=== PATIENT | male | born 1945 | race Caucasian/White ===

== ENCOUNTER → 2018-05-15 10:24 | Outpatient (CLI) | payer MEDICARE, OTHER, SELFPAY ==
[2018-05-15 12:44] LABS: BUN Creatinine Ratio 22.9 (6-22); Blood Urea Nitrogen 16 mg/dL (9-20); Estimated Glomerular Filt Rate > 60.0 mL/min (>60)
== END ==
PROVIDERS: PCP Family Medicine; Visit Provider Podiatrist
DX: M77.8 Other enthesopathies, not elsewhere classified (principal)
CPT/HCPCS: 36415; 82565; 84520

== ENCOUNTER → 2018-05-28 14:51 | Outpatient (CLI) | payer MEDICARE, OTHER, SELFPAY ==
--- NOTE | 2018-05-28 | DI.MRI.S_ITS ---
PROCEDURE: MR FOOT RT WO/W CON INDICATIONS: Pain over the first MTP joint, plantar margin, in a patient with scuffing injury of the soft tissues against this tear read with the ball of the foot medially. TECHNIQUE: Noncontrast coronal T1 spin echo and STIR, sagittal T1 spin echo with fat saturation and STIR, axial T1 spin echo and T2 fast spin echo with fat saturation. After the administration of contrast, axial/sagittal/coronal T1 spin echo with fat saturation through the right foot. COMPARISON: None. FINDINGS: Image quality: Excellent. Bones: The visualized bone marrow demonstrates normal signal on all sequences. The overlying cortex appears intact. No abnormal intraosseous enhancement. The first metatarsal head sesamoid bones appear normal. Soft tissues: No soft tissue masses suggestive of neoplasm are visualized. A ganglion cyst is not found (synovial protrusion). Within the soft tissues plantar to the first metatarsal head and associated sesamoid bones there is a curvilinear inflammatory process that measures up to 4 cm in longitudinal dimension, and up to 7 mm in thickness. This has a transverse dimension of approximately 2.7 cm, and shows relatively prominent contrast enhancement that implies hyperemia/inflammation. Centrally positioned within this area is a thin fluid collection, measuring only approximately 2 mm in thickness of the 7 mm total, with a similar reduction in size in both longitudinal and transverse dimensions. The fluid is simple in internal character, and the hyperemic inflammatory component involves the adjacent parameter material and is homogeneously enhancing. The adjacent scanned muscles demonstrate normal overall bulk and internal signal. Subcutaneous tissues otherwise appear normal as well, elsewhere. No additional abnormal soft tissue enhancement. IMPRESSION: Posttraumatic adventitial sesamoid bursitis appears present in this clinical setting, with a predominantly soft tissue inflammatory component with a thin central fluid component as discussed above, having a maximal combined thickness of 7 mm, and 8 maximal curvilinear longitudinal and transverse dimension of approximately 4 cm and 2.7 cm, respectively. There is no evidence of sesamoid bone fracture or inflammation. The remainder of the forefoot and midfoot visualized appears normal. Dictated by: Chino Quezada M.D. on 05/29/2018 at 10:33 Approved by: Chino Quezada M.D. on 05/29/2018 at 11:01
== END ==
PROVIDERS: Family Provider Family Medicine; PCP Family Medicine; Visit Provider Podiatrist
DX: M79.671 Pain in right foot (principal); M71.571 Other bursitis, not elsewhere classified, right ankle and foot
CPT/HCPCS: 73720

== ENCOUNTER 2019-03-11 10:32 | Observation (INO) | payer MEDICARE, OTHER, SELFPAY ==
[2019-03-11] VITALS (16 sets, daily range): BP systolic 107–166; BP diastolic 43–81; PULSE 89–115; RESP 16–28; TEMP 36.1–37.9; O2SAT 84–97; BMI 25.0; BMI 24.2
--- NOTE | 2019-03-11 | DI.ECHO.S_ITS ---
[facility] +---------+ : : [address] [place] : : : : [id number] : : : : Phone: [phone]+ Echocardiogram Report + + :Name: CESAR GARCÍA Study Date: 03/12/2019 Height: 72 in : :[facility] Weight: 178 lb : : Gender: Male BSA: 2.0 m2 : :: 1945 Age: 73 yrs BP: 130/71 mmHg: :Reason For Study: COPD : : Performed By: Gaviota Frazier : :Referring: JESSE MICHELLE : + + Interpretation Summary This was a technically difficult study. Patient had frequent ectopies during the study. -Overall the left ventricular and right ventricular systolic function appears are normal and there is no significant valvular pathologies. The PA systolic pressure is about 33 mmHg based on CPAP of 3 mmHg. -No prior echo for comparison. Procedure: A two-dimensional transthoracic echocardiogram with color flow and Doppler was performed. The study quality was technically adequate. Most of the acoustic windows were suboptimal, but the best imaging was obtained from the subcostal window. The heart rate ranged between 85-98 bpm during the study. Frequent ectopies. Left Ventricle: The left ventricle is normal in size, wall thickness, and systolic function without any focal wall motion abnormalities. The ejection fraction is estimated to be 60-65%. Diastolic function could not be accurately assessed due to tachycardia. Right Ventricle: The right ventricle grossly appears normal in size with probable normal systolic function. Atria: The left atrium is mildly dilated. Right atrial size is normal. There is no Doppler evidence for an interatrial shunt. Mitral Valve: The mitral valve is grossly normal. There is trace mitral regurgitation. Aortic Valve: The aortic valve opens well. There is mild aortic valve sclerosis. The aortic valve is not well visualized. There is no hemodynamically significant valvular aortic stenosis. No aortic regurgitation is present. Tricuspid Valve: The tricuspid valve is not well visualized, but is grossly normal. There is trace tricuspid regurgitation. The right ventricular systolic pressure is estimated to be at least 33 mmHg based on an estimated right atrial pressure of 3 mm Hg. Pulmonic Valve: The pulmonic valve is normal in structure and function. There is no pulmonic valvular regurgitation. Great Vessels: The aortic root is mildly dilated. The ascending aorta is at the upper limits of normal in size. The aortic arch is at the upper limits of normal in size. Inspiratory collapse cannot be assessed because of mechanical ventilation, thus CVP cannot be estimated.. Pericardium/ Pleura There is no pericardial effusion. There is no pleural effusion. MMode/2D Measurements & Calculations LVIDd: 4.7 cm Ao root diam: 3.9 cm LVIDs: 3.5 cm Aortic Jxn: 3.1 cm FS: 26.1 % asc Aorta Diam: 3.5 cm IVSd: 1.1 cm Ao Arch Diam (Prox Trans): 3.1 cm LVPWd: 0.91 cm LV cruz. diameter/BSA (cm/m^2): 2.3 LV sys. diameter/BSA (cm/m^2): 1.7 LA dimension: 3.9 cm RA long axis: 4.1 cm LA A2 area: 23.1 cm2 RA area: 14.3 cm2 LA A4 area: 19.2 cm2 RA vol: 42.0 ml LA length (vol): 4.9 cm RA : 20.7 ml/m2 LA vol: 76.4 ml IVC diam: 1.6 cm LA vol index: 37.7 ml/m2 RVDd major: 6.1 cm RVD1 (basal): 3.5 cm RVD2 (mid): 2.9 cm Doppler Measurements & Calculations Ao V2 max: 132.6 cm/sec MV E max soraya: 58.0 cm/sec Ao V2 mean: 87.2 cm/sec MV A max soraya: 83.3 cm/sec Ao max P.0 mmHg MV E/A: 0.70 Ao mean P.6 mmHg MV dec time: 0.24 sec Ao V2 VTI: 24.2 cm MV P1/2t: 74.5 msec TR max soraya: 271.3 cm/sec MV P1/2t max soraya: 57.7 cm/sec TR max P.5 mmHg MVA(P1/2t): 3.0 cm2 PA V2 max: 90.8 cm/sec PA V2 mean: 63.1 cm/sec PA mean P.8 mmHg PA Accel Time: 0.13 sec Electronically signed by: Farrukh Shields M.D. on Reading Physician:03/12/2019 04:36 PM
--- NOTE | 2019-03-11 | DI.RAD.S_ITS ---
PROCEDURE: XR CHEST 2V INDICATIONS: pulmonary edema TECHNIQUE: 2 views of the chest were acquired. COMPARISON: [facility], CT, CT ANGIO CHEST PE PROTOCOL, 03/11/2019, 12:59. [facility], CR, XR CHEST 1V, 03/11/2019, 11:08. [facility], CR, CHEST 2 VIEW, 08/06/2016, 10:52. FINDINGS: Surgical changes and devices: None. Lungs and pleura: Lungs are clear. No pleural effusions or pneumothorax. Mediastinum: Mediastinal contours are normal. Heart size is normal. Bones and chest wall: No suspicious bony abnormalities. Soft tissues appear unremarkable. IMPRESSION: Mild chronic interstitial prominence, no source of pulmonary edema is seen. Heart size remains within normal limits. Dictated by: Chino Quezada M.D. on 03/11/2019 at 16:49 Approved by: Chino Quezada M.D. on 03/11/2019 at 16:51
[2019-03-11] MEDS: ALBUTEROL/IPRATROPIUM 3 ML AMPUL INH (10:51)
--- NOTE | 2019-03-11 11:01 | DI.RAD.S_ITS ---
PROCEDURE: XR CHEST 1V INDICATIONS: short of breath TECHNIQUE: One view of the chest was acquired. COMPARISON: [facility], CHEST 2 VIEW, 08/06/2016, 10:52. [facility], CHEST 2 VIEW, 03/02/2013, 16:04. FINDINGS: Surgical changes and devices: None. Lungs and pleura: Lungs are abnormal with an alveolar and interstitial prominence through the middle and lower thirds of the lung parenchyma with relatively large lung volumes on prior lateral view chest imaging in a pattern that may reflect pulmonary edema superimposed on emphysema (causing the lucency over the upper lungs preferentially).. No pleural effusions or pneumothorax. Mediastinum: Mediastinal contours appear normal. Heart size is normal. Bones and chest wall: No suspicious bony lesions. Overlying soft tissues appear unremarkable. IMPRESSION: Previously present interstitial prominence but now with a pulmonary edema pattern superimposed. Suspect COPD and emphysematous loom changer the upper lungs bilaterally as discussed above. Dictated by: Chino Quezada M.D. on 03/11/2019 at 11:56 Approved by: Chino Quezada M.D. on 03/11/2019 at 11:58
--- NOTE | 2019-03-11 11:03 | ED.SOB ---
HPI - SOB/Dyspnea General Chief Complaint: Shortness of Breath/Dyspnea Stated Complaint: Irregular Heart Rate/SOB Time Seen by Provider: 03/11/19 10:51 Source: patient Mode of arrival: ambulatory Limitations: no limitations History of Present Illness Patient is a 73-year-old male who presents with increasing shortness of breath. her states he feels short of breath all the time is a history of COPD been worse over the last 6 days. He has of cough no fever no chills no body aches. He says that he coughs when he laid down to go to sleep. He can't get comfortable. But denies orthopnea. He has no swelling in his legs. No chest pain or heart palpitation of PVCs are noted on monitor and EKG. Was seen by PCP yesterday who thought it was viral. He states that he got back 02/28/2019 after visiting [place] and [place] flying by airplane. 5 days later he began getting short of breath, which has progressively worsened MD Complaint: shortness of breath and cough Severity: moderate Consistency/Duration: constant Relieving factors: nothing Exacerbating factors: nothing Known history of: COPD Associated symptoms: cough Related Data Home oxygen amount: none Home Medications Medication Instructions Recorded Confirmed PreserVision AREDS 1 tab PO QPM #0 03/30/13 03/11/19 aspirin 81 mg PO QPM #0 05/25/13 03/11/19 lisinopril 10 mg PO QPM 03/11/19 03/11/19 nifedipine [Procardia XL] 30 mg PO QPM 03/11/19 03/11/19 pantoprazole [Protonix] 40 mg PO QPM 03/11/19 03/11/19 Previous Rx's Medication Instructions Recorded albuterol sulfate HFA 90 1 puff INHALATION Q6H PRN #18 gram 03/10/19 mcg/actuation aerosol inhaler guaifenesin ER 1,200 mg tablet, 1,200 mg PO Q12H #20 tab 03/10/19 extended release 12 hr Allergies Allergy/AdvReac Type Severity Reaction Status Date / Time No Known Drug Allergies Allergy Verified 03/10/19 10:41 Review of Systems Review of Systems ROS Unobtainable: All systems reviewed & are unremarkable except as noted in HPI and below Constitutional Denies chills, Denies fever(s), Denies lethargy and Denies weakness Eyes Denies change in vision, Denies eye discharge, Denies irritation and Denies loss of vision Cardiovascular Denies chest pain, Denies irregular heart rhythm, Denies lightheadedness, Denies palpitations, Reports dyspnea, Reports dyspnea on exertion and Denies orthopnea Respiratory Reports cough, Reports dyspnea and Reports dyspnea on exertion Gastrointestinal Gastrointestinal: Denies abdominal pain, Denies change in bowel habits, Denies diarrhea, Denies nausea and Denies vomiting Genitourinary Denies hematuria, Denies flank pain, Denies urinary incontinence and Denies urinary urgency Musculoskeletal Denies back pain, Denies muscle weakness, Denies numbness and Denies tingling Integumentary/Breasts Denies pruritus, Denies erythema, Denies rash and Denies wounds Neurologic Denies loss of vision, Denies numbness, Denies tingling and Denies weakness Endocrine Denies palpitations FOR[facility] Medical History COPD (chronic obstructive pulmonary disease) (Chronic) Cataract (Chronic) Hearing loss (Chronic) Hemorrhoid (Chronic) Shoulder pain (Chronic ~1978) Chicken pox (Resolved ~1950) Measles (Resolved ~1949) Surgical History Anesthesia (Resolved) History of cataract removal with insertion of prosthetic lens History of tonsillectomy Family History Father Heart disease Hypertension Stroke Social History marital status: Smoking Status: Former smoker alcohol intake: never substance use type: does not use Family History Father Heart disease Hypertension Stroke Social History marital status: Smoking Status: Former smoker alcohol intake: never substance use type: does not use Exam Initial Vital Signs Initial Vital Signs: Vital Signs Temperature 99.0 F 03/11/19 10:41 Pulse Rate 115 H 03/11/19 10:41 Respiratory Rate 21 03/11/19 10:41 Blood Pressure 166/70 H 03/11/19 10:41 Pulse Oximetry 94 03/11/19 10:41 GENERAL: Alert elderly male no acute distress and in [no acute] distress. HEENT: Head atraumatic,EOMI, pupils reactive, face symmetric, neck is supple no JVD CARDIOVASCULAR: Regular rate and rhythm without murmurs, rubs or gallops. RESPIRATORY: Speaks in full sentences decreased breath sounds bilaterally slightly tachypneic ABDOMEN: Soft, nontender. Normoactive bowel sounds all 4 quadrants. No guarding or rebound. no wheezing rales or rhonchi EXTREMITIES: Normal range of motion, no clubbing or edema. Neurovascularly intact NEUROLOGICAL: Alert and oriented x4.Normal gait and speech. Cranial nerves II through XII grossly intact. SKIN: Warm, dry, no laceration, no petechiae, no rashes or lesions. Course Orders Ordered: ED Orders 03/11/19 11:01 Consult to Respiratory Therapy Evaluate & Treat XR chest 1V Stat EKG-12 Lead Stat 03/11/19 11:16 B Type Natriuretic Peptide Stat Complete Blood Count AUTO DIFF Stat Comprehensive Metabolic Panel Stat Magnesium Stat Partial Thromboplastin Time Stat Procalcitonin Stat Prothrombin Time INR Stat Troponin & CK Cardiac Panel Stat 03/11/19 12:56 CT angio chest PE protocol Stat 03/11/19 14:28 Respiratory Panel (Film Array) Stat Discontinued Medications Albuterol (Ventolin) 2.5 mg INH NOW ONE Stop: 03/11/19 11:01 Last Admin: 03/11/19 11:36 Dose: 2.5 mg Albuterol/Ipratropium (Duoneb) 3 ml INH NOW ONE Stop: 03/11/19 10:51 Last Admin: 03/11/19 10:51 Dose: 3 ml Albuterol/Ipratropium (Duoneb) 3 ml INH NOW ONE Stop: 03/11/19 11:01 Last Admin: 03/11/19 11:36 Dose: Not Given Furosemide (Lasix) 40 mg IV NOW ONE Stop: 03/11/19 13:30 Last Admin: 03/11/19 13:40 Dose: 40 mg Levofloxacin (Levaquin) 750 mg in 150 mls @ 100 mls/hr IV NOW ONE Stop: 03/11/19 14:58 Last Infusion: 03/11/19 14:42 Dose: 100 mls/hr Admin: 03/11/19 13:40 Dose: 100 mls/hr Methylprednisolone (Solu-Medrol 125 Mg Vial) 125 mg IV NOW ONE Stop: 03/11/19 11:01 Last Admin: 03/11/19 11:22 Dose: 125 mg Methylprednisolone (Solu-Medrol 125 Mg Vial) 125 mg IV NOW ONE Stop: 03/11/19 11:47 Last Admin: 03/11/19 11:51 Dose: Not Given Reevaluation(s) Reevaluation #1: The patient states that duo nebs have not helped him. He is actually tachycardic at 10:09 a.m. and satting anywhere from 90-91%. His states that he still feels short of breath and not better. Time: 12:57 Vital Signs - 8 hr 03/11/19 10:41 03/11/19 10:52 03/11/19 11:53 Temperature 99.0 F Pulse Rate 115 H 102 H 103 H Respiratory Rate 21 Blood Pressure 166/70 H Blood Pressure [Left Arm] Pulse Oximetry 94 97 03/11/19 12:00 03/11/19 12:30 03/11/19 13:11 Temperature Pulse Rate 102 H 101 H 108 H Respiratory Rate 22 22 16 Blood Pressure Blood Pressure [Left Arm] 122/56 L 134/51 L 136/43 L Pulse Oximetry 94 90 L 93 03/11/19 13:45 03/11/19 13:55 03/11/19 14:42 Temperature Pulse Rate 98 H 115 H 102 H Respiratory Rate 16 28 H 20 Blood Pressure 128/62 Blood Pressure [Left Arm] 107/61 Pulse Oximetry 96 84 L 95 03/11/19 14:54 Temperature 100.3 F H Pulse Rate 105 H Respiratory Rate 18 Blood Pressure 150/76 H Blood Pressure [Left Arm] Pulse Oximetry 93 MDM - SOB/Dyspnea Lab Data Attestation: I reviewed the patient's lab results. Result diagrams: 03/11/19 11:16 03/11/19 11:16 Lab Results 03/11/19 03/11/19 03/11/19 Range/Units 11:16 11:16 11:16 WBC 17.0 H (4.5-11.0) X10^3/uL RBC 4.58 (4.5-5.9) X10^6/uL Hgb 13.9 (13.5-17.5) g/dL Hct 41.1 (41-53) % MCV 89.8 (80-100) fL MCH 30.4 (26-34) PG MCHC 33.9 (30-36) % RDW 12.8 (11.6-14.8) % Plt Count 320 (150-400) X10^3/uL Neut % (Auto) 58.9 (50-75) % Lymph % (Auto) 21.2 L (25-40) % [facility] % (Auto) 18.4 H (3-14) % Eos % (Auto) 1.1 L (2-4) % Baso % (Auto) 0.4 (0-2) % Neut # (Auto) 70602 H (1206-8189) /uL Lymph # (Auto) 3600 (9071-7052) /uL [facility] # (Auto) 3100 H (0-900) /uL Eos # (Auto) 200 (0-450) /uL Baso # (Auto) 100 (0-100) /uL PT 15.5 H (10.1-12.7) SECONDS INR 1.3 (0.9-1.3) APTT 29 (26.4-36.2) SECONDS Sodium 139 (137-145) mmol/L Potassium 3.8 (3.4-5.1) mmol/L Chloride 103 (98-107) mmol/L Carbon Dioxide 24 (22-32) mmol/L BUN 21 H (9-20) mg/dL Creatinine 0.80 (0.66-1.25) mg/dL Estimated GFR > 60.0 (>60) mL/min BUN/Creatinine Ratio 26.3 H (6-22) Glucose 113 H (80-110) mg/dL Calcium 8.6 (8.4-10.2) mg/dL Magnesium 2.0 (1.6-2.3) mg/dL Total Bilirubin 1.2 (0.2-1.3) mg/dL AST 34 (17-59) IU/L ALT 38 (21-72) IU/L Alkaline Phosphatase 108 (38-126) U/L Total Creatine Kinase 332 H (55-170) U/L CK-MB (CK-2) 4.10 H (<2.37) ng/mL CK-MB (CK-2) Rel Index 1.2 L (1.5-5.0) % Troponin I < 0.012 (0.01-0.034) ng/mL B-Natriuretic Peptide 107 H (<100) Total Protein 7.0 (6.3-8.2) g/dL Albumin 3.9 (3.5-5.0) g/dL Globulin 3.1 (1.7-4.1) g/dL Albumin/Globulin Ratio 1.3 (1.0-2.8) Procalcitonin (<0.5) ng/mL 03/11/19 Range/Units 11:16 WBC (4.5-11.0) X10^3/uL RBC (4.5-5.9) X10^6/uL Hgb (13.5-17.5) g/dL Hct (41-53) % MCV (80-100) fL MCH (26-34) PG MCHC (30-36) % RDW (11.6-14.8) % Plt Count (150-400) X10^3/uL Neut % (Auto) (50-75) % Lymph % (Auto) (25-40) % [facility] % (Auto) (3-14) % Eos % (Auto) (2-4) % Baso % (Auto) (0-2) % Neut # (Auto) (3053-0223) /uL Lymph # (Auto) (5051-9285) /uL [facility] # (Auto) (0-900) /uL Eos # (Auto) (0-450) /uL Baso # (Auto) (0-100) /uL PT (10.1-12.7) SECONDS INR (0.9-1.3) APTT (26.4-36.2) SECONDS Sodium (137-145) mmol/L Potassium (3.4-5.1) mmol/L Chloride (98-107) mmol/L Carbon Dioxide (22-32) mmol/L BUN (9-20) mg/dL Creatinine (0.66-1.25) mg/dL Estimated GFR (>60) mL/min BUN/Creatinine Ratio (6-22) Glucose (80-110) mg/dL Calcium (8.4-10.2) mg/dL Magnesium (1.6-2.3) mg/dL Total Bilirubin (0.2-1.3) mg/dL AST (17-59) IU/L ALT (21-72) IU/L Alkaline Phosphatase (38-126) U/L Total Creatine Kinase (55-170) U/L CK-MB (CK-2) (<2.37) ng/mL CK-MB (CK-2) Rel Index (1.5-5.0) % Troponin I (0.01-0.034) ng/mL B-Natriuretic Peptide (<100) Total Protein (6.3-8.2) g/dL Albumin (3.5-5.0) g/dL Globulin (1.7-4.1) g/dL Albumin/Globulin Ratio (1.0-2.8) Procalcitonin 0.32 (<0.5) ng/mL ECG Data Attestation: I personally reviewed and interpreted this ECG as follows: Prior ECG tracings: not available for review Interpretation: Normal sinus rhythm rate [address] changes no PVCs MDM Narrative Medical decision making narrative: Patient has had no improvement with bronchodilators or Solu-Medrol. He states that they did not help when he was diagnosed with COPD either. He and goes on to tell me that he recently traveled and came back from a trip. Patient sent for CT to rule out PE which is negative but does show some ground-glass opacities. And pulmonary edema. He is noted to have leukocytosis slight elevation and procalcitonin no definite pneumonia on x-ray. He does have productive cough. X-ray does show some mild pulmonary congestion BNP is 107 just above normal, no lower extremity edema abdominal distention. Ambulation trial the patient failed O2 sats dropped to 82-84% on room air and heart rate increased into the high 120 he is. Patient has been treated for COPD, CHF and pneumonia I spoke with Dr. Dexter villa happily accepts patient. Discharge Plan Departure Patient Disposition: Admitted As Inpatient Clinical Impression: COPD (chronic obstructive pulmonary disease) Qualifiers: COPD type: COPD with acute exacerbation Qualified Code(s): J44.1 - Chronic obstructive pulmonary disease with (acute) exacerbation Interventions: ED Discharge Assessment Last Done: 03/11/19 14:42 Admit Date/Time: 03/11/19 14:16 Admit Provider: Messi Alonzo
--- NOTE | 2019-03-11 11:08 | ED_ITS ---
HPI - SOB/Dyspnea General Chief Complaint: Shortness of Breath/Dyspnea Stated Complaint: Irregular Heart Rate/SOB Time Seen by Provider: 03/11/19 10:51 Source: patient Mode of arrival: ambulatory Limitations: no limitations History of Present Illness Patient is a 73-year-old male who presents with increasing shortness of breath. her states he feels short of breath all the time is a history of COPD been worse over the last 6 days. He has of cough no fever no chills no body aches. He says that he coughs when he laid down to go to sleep. He can't get comfortable. But denies orthopnea. He has no swelling in his legs. No chest pain or heart palpitation of PVCs are noted on monitor and EKG. Was seen by PCP yesterday who thought it was viral. He states that he got back 02/28/2019 after visiting [place] and [place] flying by airplane. 5 days later he began getting short of breath, which has progressively worsened MD Complaint: shortness of breath and cough Severity: moderate Consistency/Duration: constant Relieving factors: nothing Exacerbating factors: nothing Known history of: COPD Associated symptoms: cough Related Data Home oxygen amount: none Home Medications Medication Instructions Recorded Confirmed PreserVision AREDS 1 tab PO QPM #0 03/30/13 03/11/19 aspirin 81 mg PO QPM #0 05/25/13 03/11/19 lisinopril 10 mg PO QPM 03/11/19 03/11/19 nifedipine [Procardia XL] 30 mg PO QPM 03/11/19 03/11/19 pantoprazole [Protonix] 40 mg PO QPM 03/11/19 03/11/19 Previous Rx's Medication Instructions Recorded albuterol sulfate HFA 90 1 puff INHALATION Q6H PRN #18 gram 03/10/19 mcg/actuation aerosol inhaler guaifenesin ER 1,200 mg tablet, 1,200 mg PO Q12H #20 tab 03/10/19 extended release 12 hr Allergies Allergy/AdvReac Type Severity Reaction Status Date / Time No Known Drug Allergies Allergy Verified 03/10/19 10:41 Review of Systems Review of Systems ROS Unobtainable: All systems reviewed & are unremarkable except as noted in HPI and below Constitutional Denies chills, Denies fever(s), Denies lethargy and Denies weakness Eyes Denies change in vision, Denies eye discharge, Denies irritation and Denies loss of vision Cardiovascular Denies chest pain, Denies irregular heart rhythm, Denies lightheadedness, Denies palpitations, Reports dyspnea, Reports dyspnea on exertion and Denies orthopnea Respiratory Reports cough, Reports dyspnea and Reports dyspnea on exertion Gastrointestinal Gastrointestinal: Denies abdominal pain, Denies change in bowel habits, Denies diarrhea, Denies nausea and Denies vomiting Genitourinary Denies hematuria, Denies flank pain, Denies urinary incontinence and Denies urinary urgency Musculoskeletal Denies back pain, Denies muscle weakness, Denies numbness and Denies tingling Integumentary/Breasts Denies pruritus, Denies erythema, Denies rash and Denies wounds Neurologic Denies loss of vision, Denies numbness, Denies tingling and Denies weakness Endocrine Denies palpitations [facility] Medical History COPD (chronic obstructive pulmonary disease) (Chronic) Cataract (Chronic) Hearing loss (Chronic) Hemorrhoid (Chronic) Shoulder pain (Chronic ~1978) Chicken pox (Resolved ~1950) Measles (Resolved ~1949) Surgical History Anesthesia (Resolved) History of cataract removal with insertion of prosthetic lens History of tonsillectomy Family History Father Heart disease Hypertension Stroke Social History marital status: Smoking Status: Former smoker alcohol intake: never substance use type: does not use Family History Father Heart disease Hypertension Stroke Social History marital status: Smoking Status: Former smoker alcohol intake: never substance use type: does not use Exam Initial Vital Signs Initial Vital Signs: Vital Signs Temperature 99.0 F 03/11/19 10:41 Pulse Rate 115 H 03/11/19 10:41 Respiratory Rate 21 03/11/19 10:41 Blood Pressure 166/70 H 03/11/19 10:41 Pulse Oximetry 94 03/11/19 10:41 GENERAL: Alert elderly male no acute distress and in [no acute] distress. HEENT: Head atraumatic,EOMI, pupils reactive, face symmetric, neck is supple no JVD CARDIOVASCULAR: Regular rate and rhythm without murmurs, rubs or gallops. RESPIRATORY: Speaks in full sentences decreased breath sounds bilaterally slightly tachypneic ABDOMEN: Soft, nontender. Normoactive bowel sounds all 4 quadrants. No guar ding or rebound. no wheezing rales or rhonchi EXTREMITIES: Normal range of motion, no clubbing or edema. Neurovascularly intact NEUROLOGICAL: Alert and oriented x4.Normal gait and speech. Cranial nerves II through XII grossly intact. SKIN: Warm, dry, no laceration, no petechiae, no rashes or lesions. Course Orders Ordered: ED Orders 03/11/19 11:01 Consult to Respiratory Therapy Evaluate & Treat XR chest 1V Stat EKG-12 Lead Stat 03/11/19 11:16 B Type Natriuretic Peptide Stat Complete Blood Count AUTO DIFF Stat Comprehensive Metabolic Panel Stat Magnesium Stat Partial Thromboplastin Time Stat Procalcitonin Stat Prothrombin Time INR Stat Troponin & CK Cardiac Panel Stat 03/11/19 12:56 CT angio chest PE protocol Stat 03/11/19 14:28 Respiratory Panel (Film Array) Stat Discontinued Medications Albuterol (Ventolin) 2.5 mg INH NOW ONE Stop: 03/11/19 11:01 Last Admin: 03/11/19 11:36 Dose: 2.5 mg Albuterol/Ipratropium (Duoneb) 3 ml INH NOW ONE Stop: 03/11/19 10:51 Last Admin: 03/11/19 10:51 Dose: 3 ml Albuterol/Ipratropium (Duoneb) 3 ml INH NOW ONE Stop: 03/11/19 11:01 Last Admin: 03/11/19 11:36 Dose: Not Given Furosemide (Lasix) 40 mg IV NOW ONE Stop: 03/11/19 13:30 Last Admin: 03/11/19 13:40 Dose: 40 mg Levofloxacin (Levaquin) 750 mg in 150 mls @ 100 mls/hr IV NOW ONE Stop: 03/11/19 14:58 Last Infusion: 03/11/19 14:42 Dose: 100 mls/hr Admin: 03/11/19 13:40 Dose: 100 mls/hr Methylprednisolone (Solu-Medrol 125 Mg Vial) 125 mg IV NOW ONE Stop: 03/11/19 11:01 Last Admin: 03/11/19 11:22 Dose: 125 mg Methylprednisolone (Solu-Medrol 125 Mg Vial) 125 mg IV NOW ONE Stop: 03/11/19 11:47 Last Admin: 03/11/19 11:51 Dose: Not Given Reevaluation(s) Reevaluation #1: The patient states that duo nebs have not helped him. He is actually tachycardic at 10:09 a.m. and satting anywhere from 90-91%. His states that he still feels short of breath and not better. Time: 12:57 Vital Signs - 8 hr 03/11/19 10:41 03/11/19 10:52 03/11/19 11:53 Temperature 99.0 F Pulse Rate 115 H 102 H 103 H Respiratory Rate 21 Blood Pressure 166/70 H Blood Pressure [Left Arm] Pulse Oximetry 94 97 03/11/19 12:00 03/11/19 12:30 03/11/19 13:11 Temperature Pulse Rate 102 H 101 H 108 H Respiratory Rate 22 22 16 Blood Pressure Blood Pressure [Left Arm] 122/56 L 134/51 L 136/43 L Pulse Oximetry 94 90 L 93 03/11/19 13:45 03/11/19 13:55 03/11/19 14:42 Temperature Pulse Rate 98 H 115 H 102 H Respiratory Rate 16 28 H 20 Blood Pressure 128/62 Blood Pressure [Left Arm] 107/61 Pulse Oximetry 96 84 L 95 03/11/19 14:54 Temperature 100.3 F H Pulse Rate 105 H Respiratory Rate 18 Blood Pressure 150/76 H Blood Pressure [Left Arm] Pulse Oximetry 93 MDM - SOB/Dyspnea Lab Data Attestation: I reviewed the patient's lab results. Result diagrams: 03/11/19 11:16 03/11/19 11:16 Lab Results 03/11/19 03/11/19 03/11/19 Range/Units 11:16 11:16 11:16 WBC 17.0 H (4.5-11.0) X10^3/uL RBC 4.58 (4.5-5.9) X10^6/uL Hgb 13.9 (13.5-17.5) g/dL Hct 41.1 (41-53) % MCV 89.8 (80-100) fL MCH 30.4 (26-34) PG MCHC 33.9 (30-36) % RDW 12.8 (11.6-14.8) % Plt Count 320 (150-400) X10^3/uL Neut % (Auto) 58.9 (50-75) % Lymph % (Auto) 21.2 L (25-40) % [place] % (Auto) 18.4 H (3-14) % Eos % (Auto) 1.1 L (2-4) % Baso % (Auto) 0.4 (0-2) % Neut # (Auto) 47869 H (3449-0425) /uL Lymph # (Auto) 3600 (3123-0362) /uL [place] # (Auto) 3100 H (0-900) /uL Eos # (Auto) 200 (0-450) /uL Baso # (Auto) 100 (0-100) /uL PT 15.5 H (10.1-12.7) SECONDS INR 1.3 (0.9-1.3) APTT 29 (26.4-36.2) SECONDS Sodium 139 (137-145) mmol/L Potassium 3.8 (3.4-5.1) mmol/L Chloride 103 (98-107) mmol/L Carbon Dioxide 24 (22-32) mmol/L BUN 21 H (9-20) mg/dL Creatinine 0.80 (0.66-1.25) mg/dL Estimated GFR > 60.0 (>60) mL/min BUN/Creatinine Ratio 26.3 H (6-22) Glucose 113 H (80-110) mg/dL Calcium 8.6 (8.4-10.2) mg/dL Magnesium 2.0 (1.6-2.3) mg/dL Total Bilirubin 1.2 (0.2-1.3) mg/dL AST 34 (17-59) IU/L ALT 38 (21-72) IU/L Alkaline Phosphatase 108 (38-126) U/L Total Creatine Kinase 332 H (55-170) U/L CK-MB (CK-2) 4.10 H (<2.37) ng/mL CK-MB (CK-2) Rel Index 1.2 L (1.5-5.0) % Troponin I < 0.012 (0.01-0.034) ng/mL B-Natriuretic Peptide 107 H (<100) Total Protein 7.0 (6.3-8.2) g/dL Albumin 3.9 (3.5-5.0) g/dL Globulin 3.1 (1.7-4.1) g/dL Albumin/Globulin Ratio 1.3 (1.0-2.8) Procalcitonin (<0.5) ng/mL 03/11/19 Range/Units 11:16 WBC (4.5-11.0) X10^3/uL RBC (4.5-5.9) X10^6/uL Hgb (13.5-17.5) g/dL Hct (41-53) % MCV (80-100) fL MCH (26-34) PG MCHC (30-36) % RDW (11.6-14.8) % Plt Count (150-400) X10^3/uL Neut % (Auto) (50-75) % Lymph % (Auto) (25-40) % [place] % (Auto) (3-14) % Eos % (Auto) (2-4) % Baso % (Auto) (0-2) % Neut # (Auto) (9164-0414) /uL Lymph # (Auto) (1539-5780) /uL [place] # (Auto) (0-900) /uL Eos # (Auto) (0-450) /uL Baso # (Auto) (0-100) /uL PT (10.1-12.7) SECONDS INR (0.9-1.3) APTT (26.4-36.2) SECONDS Sodium (137-145) mmol/L Potassium (3.4-5.1) mmol/L Chloride (98-107) mmol/L Carbon Dioxide (22-32) mmol/L BUN (9-20) mg/dL Creatinine (0.66-1.25) mg/dL Estimated GFR (>60) mL/min BUN/Creatinine Ratio (6-22) Glucose (80-110) mg/dL Calcium (8.4-10.2) mg/dL Magnesium (1.6-2.3) mg/dL Total Bilirubin (0.2-1.3) mg/dL AST (17-59) IU/L ALT (21-72) IU/L Alkaline Phosphatase (38-126) U/L Total Creatine Kinase (55-170) U/L CK-MB (CK-2) (<2.37) ng/mL CK-MB (CK-2) Rel Index (1.5-5.0) % Troponin I (0.01-0.034) ng/mL B-Natriuretic Peptide (<100) Total Protein (6.3-8.2) g/dL Albumin (3.5-5.0) g/dL Globulin (1.7-4.1) g/dL Albumin/Globulin Ratio (1.0-2.8) Procalcitonin 0.32 (<0.5) ng/mL ECG Data Attestation: I personally reviewed and interpreted this ECG as follows: Prior ECG tracings: not available for review Interpretation: Normal sinus rhythm rate [address] changes no PVCs MDM Narrative Medical decision making narrative: Patient has had no improvement with bronchodilators or Solu-Medrol. He states that they did not help when he was diagnosed with COPD either. He and goes on to tell me that he recently traveled and came back from a trip. Patient sent for CT to rule out PE which is negative but does show some ground- glass opacities. And pulmonary edema. He is noted to have leukocytosis slight elevation and procalcitonin no definite pneumonia on x-ray. He does have productive cough. X-ray does show some mild pulmonary congestion BNP is 107 just above normal, no lower extremity edema abdominal distention. Ambulation trial the patient failed O2 sats dropped to 82-84% on room air and heart rate increased into the high 120 he is. Patient has been treated for COPD, CHF and pneumonia I spoke with Dr. Dexter villa happily accepts patient. Discharge Plan Departure Patient Disposition: Admitted As Inpatient Clinical Impression: COPD (chronic obstructive pulmonary disease) Qualifiers: COPD type: COPD with acute exacerbation Qualified Code(s): J44.1 - Chronic obstructive pulmonary disease with (acute) exacerbation Interventions: ED Discharge Assessment Last Done: 03/11/19 14:42 Admit Date/Time: 03/11/19 14:16 Admit Provider: Messi Alonzo
[2019-03-11 11:21] LABS: Add Manual Diff / Slide Review NO; Basophils Absolute Auto 100 /uL (0-100); Basophils Percent Auto 0.4 % (0-2); Eosinophils Absolute Auto 200 /uL (0-450); Eosinophils Percent Auto 1.1 % (2-4); Hematocrit 41.1 % (41-53); Hemoglobin 13.9 g/dL (13.5-17.5); Lymphocytes Absolute Auto 3600 /uL (1100-4500); Lymphocytes Percent Auto 21.2 % (25-40); Mean Corpuscular HGB Conc 33.9 % (30-36); Mean Corpuscular Hemoglobin 30.4 PG (26-34); Mean Corpuscular Volume 89.8 fL (80-100); Monocytes Absolute Auto 3100 /uL (0-900); Monocytes Percent Auto 18.4 % (3-14); Neutrophils Absolute Auto 10000 /uL (1500-7000); Neutrophils Percent Auto 58.9 % (50-75); Platelet Count 320 X10^3/uL (150-400); Red Blood Cell Count 4.58 X10^6/uL (4.5-5.9); Red Cell Distribution Width 12.8 % (11.6-14.8)
[2019-03-11] MEDS: methylPREDNISolone 125 MG/2 ML VIAL IV (11:22)
[2019-03-11 11:24] LABS: INR 1.3 (0.9-1.3); Prothrombin Time 15.5 SECONDS (10.1-12.7)
[2019-03-11 11:26] LABS: PTT Partial Thromboplastin Tim 29 SECONDS (26.4-36.2)
[2019-03-11 11:29] LABS: Alanine Aminotransferase 38 IU/L (21-72); Albumin 3.9 g/dL (3.5-5.0); Albumin Globulin Ratio 1.3 (1.0-2.8); Alkaline Phosphatase 108 U/L (38-126); Aspartate Aminotransferase 34 IU/L (17-59); BUN Creatinine Ratio 26.3 (6-22); Bilirubin Total 1.2 mg/dL (0.2-1.3); Blood Urea Nitrogen 21 mg/dL (9-20); Calcium 8.6 mg/dL (8.4-10.2); Carbon Dioxide 24 mmol/L (22-32); Chloride 103 mmol/L (98-107); Creatine Kinase 332 U/L (55-170); Estimated Glomerular Filt Rate > 60.0 mL/min (>60); Globulin 3.1 g/dL (1.7-4.1); Glucose 113 mg/dL (80-110); HEMOLYSIS < 15 (0-50); Potassium 3.8 mmol/L (3.4-5.1); Sodium 139 mmol/L (137-145)
[2019-03-11 11:36] LABS: B Type Natriuretic Peptide 107 (<100)
[2019-03-11] MEDS: ALBUTEROL 2.5 MG/3 ML NEB (ADULT) INH (11:36)
[2019-03-11 11:40] LABS: Troponin I < 0.012 ng/mL (0.01-0.034)
[2019-03-11 11:44] LABS: CKMB % Relative Index 1.2 % (1.5-5.0)
[2019-03-11 11:45] LABS: Procalcitonin 0.32 ng/mL (<0.5)
--- NOTE | 2019-03-11 12:56 | DI.CT.S_ITS ---
PROCEDURE: CT ANGIO CHEST PE PROTOCOL INDICATIONS: Short of breath, hypoxia TECHNIQUE: After the administration of intravenous contrast, 2 mm thick sections acquired from the pulmonary apices to the posterior costophrenic angles. 3-dimensional maximum intensity projection (MIP) coronal and sagittal reformats were then acquired through the thorax. For radiation dose reduction, the following was used: automated exposure control, adjustment of mA and/or kV according to patient size. COMPARISON: [facility], CHEST 2 VIEW, 01/07/2011, 9:33. [facility], CHEST 2 VIEW, 03/02/2013, 16:04. [facility], , CHEST 2 VIEW, 08/06/2016, 10:52. [facility], XR CHEST 1V, 03/11/2019, 11:08. FINDINGS: Image quality: Excellent. Pulmonary arteries: Pulmonary arteries are normal in size, and demonstrate no intraluminal filling defects to suggest central pulmonary embolism. Lungs and pleura: Emphysematous changes are seen, particularly superiorly. There is an apparent subpleural scarring seen on the right posteriorly and superiorly. Within the dependent lower lobes, there is mild enhancing consolidation seen. Generalized groundglass opacity can be seen. No pleural effusions or pneumothorax. Central and peripheral airways are patent. Mediastinum: Heart size is normal, without pericardial effusion. Coronary artery calcifications are seen. Enlarged mediastinal lymph nodes are seen. There is a subcarinal lymph node seen that measures 2.6 x 1.3 cm. There is a right perihilar lymph node (or group of lymph nodes) fat measures 3.6 x 2 cm. There is an enlarged left perihilar lymph node seen that measures 1.8 x 1.6 cm. Thoracic aorta is normal in caliber and enhancement. No findings of aortic aneurysm or dissection can be seen in Atherosclerotic calcification can be seen, particularly involving the origins of the great vessels. Esophagus is normal in caliber. There is a small hiatal hernia. Bones and chest wall: No suspicious bony lesions. Age-appropriate bony degenerative changes are seen. Ribs and thoracic spine appear intact throughout. Thyroid gland demonstrates no significant CT abnormality. No axillary or supraclavicular adenopathy. Abdomen: Prominent bilateral parapelvic cysts can be seen. The visualized portions of the upper abdominal structures are otherwise unremarkable for imaging technique. IMPRESSION: Negative for pulmonary embolism. No findings of aortic aneurysm or dissection. Groundglass opacities are seen, which are consistent with pulmonary edema. Likely enhancing atelectasis can be seen at the lung bases. Differential diagnosis includes mild infiltrate, however. Enlarged mediastinal and perihilar lymph nodes are seen, which are most likely reactive. However, in a patient of this age, differential diagnosis includes metastatic disease. Emphysematous changes are seen. Likely scarring is seen within the superior right lung. Incidental note is made of: Small hiatal hernia Atherosclerotic calcification, including coronary artery calcification Prominent bilateral parapelvic cysts Dictated by: Dusty Milligan M.D. on 03/11/2019 at 12:17 Approved by: Dusty Milligan M.D. on 03/11/2019 at 12:22
[2019-03-11] MEDS: levoFLOXacin 750 MG/150 ML PIGGYBACK 100 MG IV (13:40)
[2019-03-11] MEDS: FUROSEMIDE 40 MG/4 ML VIAL IV (13:40)
--- NOTE | 2019-03-11 15:24 | PC.NURSE ---
pt tucked into bed from ed- admission assessment deferred at this time to oncoming rn- he denies pain, voided and hr-irreg with freq pvc's- report given to ann cevallos
--- NOTE | 2019-03-11 16:04 | PM.HP.1 ---
History of Present Illness Chief complaint: Irregular Heart Rate/SOB Narrative: Patient complains of shortness of breath and cough. Symptoms started this last weekend. He had his recently traveled to [place] go to [place] and then flew home they been gone about 2 weeks. The patient had his normal weekend. He says Friday night he began to have a mild cough. He then also had some greenish peres sputum production. He felt warm and maybe had some night sweats that night. He figured he would wake up the next day and feel little bit better. He did not he continued to cough intermittently and then began to have shortness of breath. Had mild decreased exercise tolerance he has some mild pain with his cough. And increasing shortness of breath with his cough. He has no palpitations. No headache no dizziness no blurry vision. He has had no lower extremity edema or swelling calf pain or tenderness. his cough progressed and yesterday he was seen in the clinic with increasing cough and shortness of breath. Diagnosed with a viral infection and prescribed his home remedies and symptomatic care. Yesterday evening his cough progressed in his shortness of breath also progressed he then had a rough night last night and then progressed to the emergency room today with worsening symptoms this morning. He denies any clearcut fevers or chills. He denies any blood similar symptoms before. His is not sick. He did fly and spent a lot of time in the car. Patient History Medical History COPD (chronic obstructive pulmonary disease) (Chronic) Cataract (Chronic) Hearing loss (Chronic) Hemorrhoid (Chronic) Shoulder pain (Chronic ~1978) Chicken pox (Resolved ~1950) Measles (Resolved ~1949) Surgical History Anesthesia (Resolved) History of cataract removal with insertion of prosthetic lens History of tonsillectomy Family History Father Heart disease Hypertension Stroke Social History marital status: Smoking Status: Former smoker alcohol intake: never substance use type: does not use Family & Social History Family History Father Heart disease Hypertension Stroke Safety & Behavioral: Feels Safe in Current Yes Environment Been Physically Hurt or No Threatened By a Person Tobacco & Substance use: Smoking Status Former smoker alcohol intake never alcohol intake frequency 0-2 drinks per day Substance Use Type does not use Meds Home Medications Medication Instructions Recorded Confirmed Type PreserVision AREDS 1 tab PO QPM #0 03/30/13 03/11/19 History aspirin 81 mg PO QPM #0 05/25/13 03/11/19 History guaifenesin ER 1,200 mg tablet, 1,200 mg PO Q12H #20 tab 03/10/19 03/11/19 Rx extended release 12 hr lisinopril 10 mg PO QPM 03/11/19 03/11/19 History nifedipine [Procardia XL] 30 mg PO QPM 03/11/19 03/11/19 History pantoprazole [Protonix] 40 mg PO QPM 03/11/19 03/11/19 History Allergies Allergy/AdvReac Type Severity Reaction Status Date / Time No Known Drug Allergies Allergy Verified 03/10/19 10:41 Exam Vital Signs (past 8 hours): - 03/11/19 10:41 03/11/19 10:52 03/11/19 11:53 Temperature 99.0 F Pulse Rate 115 H 102 H 103 H Respiratory Rate 21 Blood Pressure 166/70 H Blood Pressure [Left Arm] Pulse Oximetry 94 97 03/11/19 12:00 03/11/19 12:30 03/11/19 13:11 Temperature Pulse Rate 102 H 101 H 108 H Respiratory Rate 22 22 16 Blood Pressure Blood Pressure [Left Arm] 122/56 L 134/51 L 136/43 L Pulse Oximetry 94 90 L 93 03/11/19 13:45 03/11/19 13:55 03/11/19 14:42 Temperature Pulse Rate 98 H 115 H 102 H Respiratory Rate 16 28 H 20 Blood Pressure 128/62 Blood Pressure [Left Arm] 107/61 Pulse Oximetry 96 84 L 95 03/11/19 14:54 03/11/19 15:58 Temperature 100.3 F H 98.8 F Pulse Rate 105 H 96 H Respiratory Rate 18 16 Blood Pressure 150/76 H 132/61 Blood Pressure [Left Arm] Pulse Oximetry 93 92 Oxygen Delivery Method Nasal Cannula Oxygen Flow Rate 2 Narrative Exam Narrative: Gen.: Alert good historian patient is on oxygen mild increased work of breathing HEENT: NCAT PERRLA tympanic membranes are clear nares are patent oral mucosa is moist no tonsillar hypertrophy neck is supple without lymphadenopathy no thyroid enlargement. Cardio: S1-S2 regular rate and rhythm no murmurs appreciated. Respiratory: Respiratory shows good air movement. With some fine respiratory wheezes Abdomen: Soft nontender no rebound or guarding no liver spleen enlargement no appreciable hernias Extremities: Full range of motion no appreciable weakness no cyanosis or edema. Neurologic: Grossly intact. Objective Imaging CT scan - chest: Radiologist's impression: Pulmonary arteries: Pulmonary arteries are normal in size, and demonstrate no intraluminal filling defects to suggest central pulmonary embolism. Lungs and pleura: Emphysematous changes are seen, particularly superiorly. There is an apparent subpleural scarring seen on the right posteriorly and superiorly. Within the dependent lower lobes, there is mild enhancing consolidation seen. Generalized groundglass opacity can be seen. No pleural effusions or pneumothorax. Central and peripheral airways are patent. Mediastinum: Heart size is normal, without pericardial effusion. Coronary artery calcifications are seen. Enlarged mediastinal lymph nodes are seen. There is a subcarinal lymph node seen that measures 2.6 x 1.3 cm. There is a right perihilar lymph node (or group of lymph nodes) fat measures 3.6 x 2 cm. There is an enlarged left perihilar lymph node seen that measures 1.8 x 1.6 cm. Thoracic aorta is normal in caliber and enhancement. No findings of aortic aneurysm or dissection can be seen in Atherosclerotic calcification can be seen, particularly involving the origins of the great vessels. Esophagus is normal in caliber. There is a small hiatal hernia. Bones and chest wall: No suspicious bony lesions. Age-appropriate bony degenerative changes are seen. Ribs and thoracic spine appear intact throughout. Thyroid gland demonstrates no significant CT abnormality. No axillary or supraclavicular adenopathy. Abdomen: Prominent bilateral parapelvic cysts can be seen. The visualized portions of the upper abdominal structures are otherwise unremarkable for imaging technique. IMPRESSION: Negative for pulmonary embolism. No findings of aortic aneurysm or dissection. Groundglass opacities are seen, which are consistent with pulmonary edema. Likely enhancing atelectasis can be seen at the lung bases. Differential diagnosis includes mild infiltrate, however. Enlarged mediastinal and perihilar lymph nodes are seen, which are most likely reactive. However, in a patient of this age, differential diagnosis includes metastatic disease. Emphysematous changes are seen. Likely scarring is seen within the superior right lung. Incidental note is made of: Small hiatal hernia Atherosclerotic calcification, including coronary artery calcification Prominent bilateral parapelvic cysts Labs Result Diagrams: 03/11/19 11:16 03/11/19 11:16 Labs: Laboratory Results - last 24 hr 03/11/19 03/11/19 03/11/19 11:16 11:16 11:16 WBC 17.0 H RBC 4.58 Hgb 13.9 Hct 41.1 MCV 89.8 MCH 30.4 MCHC 33.9 RDW 12.8 Plt Count 320 Neut % (Auto) 58.9 Lymph % (Auto) 21.2 L [place] % (Auto) 18.4 H Eos % (Auto) 1.1 L Baso % (Auto) 0.4 Neut # (Auto) 75096 H Lymph # (Auto) 3600 [place] # (Auto) 3100 H Eos # (Auto) 200 Baso # (Auto) 100 PT 15.5 H INR 1.3 APTT 29 Sodium 139 Potassium 3.8 Chloride 103 Carbon Dioxide 24 BUN 21 H Creatinine 0.80 Estimated GFR > 60.0 BUN/Creatinine Ratio 26.3 H Glucose 113 H Calcium 8.6 Magnesium 2.0 Total Bilirubin 1.2 AST 34 ALT 38 Alkaline Phosphatase 108 Total Creatine Kinase 332 H CK-MB (CK-2) 4.10 H CK-MB (CK-2) Rel Index 1.2 L Troponin I < 0.012 B-Natriuretic Peptide 107 H Total Protein 7.0 Albumin 3.9 Globulin 3.1 Albumin/Globulin Ratio 1.3 Procalcitonin 03/11/19 11:16 WBC RBC Hgb Hct MCV MCH MCHC RDW Plt Count Neut % (Auto) Lymph % (Auto) [place] % (Auto) Eos % (Auto) Baso % (Auto) Neut # (Auto) Lymph # (Auto) [place] # (Auto) Eos # (Auto) Baso # (Auto) PT INR APTT Sodium Potassium Chloride Carbon Dioxide BUN Creatinine Estimated GFR BUN/Creatinine Ratio Glucose Calcium Magnesium Total Bilirubin AST ALT Alkaline Phosphatase Total Creatine Kinase CK-MB (CK-2) CK-MB (CK-2) Rel Index Troponin I B-Natriuretic Peptide Total Protein Albumin Globulin Albumin/Globulin Ratio Procalcitonin 0.32 Assessment & Plan Assessment & Plan narrative: Acute respiratory failure. Patient comes in with hypoxia tachycardia low oxygen saturation and increased work of breathing with respiratory distress. received nebulizer treatment steroids Lasix antibiotics in the emergency room. Patient is now requiring nasal cannula oxygen. Still has mild increased work of breathing. ABG was not done. He has improved. But on room-air saturations drop into the mid 80s and with ambulation even lower. Cause of respiratory failure and all likely had underlying infectious etiology bacterial versus a viral infection. He has an elevated white blood cell count but normal pro 6 calcitonin. His PCR is negative. He has a known history of mild to moderate COPD. He has not had any hospitalizations had not been on a steroid and does not use regular inhalers. This could be just turning [place] in his disease process. We will go ahead and treat him for infectious etiologies at this point based on his elevated white blood cell count. Start him on broad-spectrum Levaquin. Will place him on steroids he got a bolus in the emergency room [address] him on 60 mg of Solu-Medrol daily. He will continue to receive duo nebulizers per respiratory protocol. He had he says he starts to feel better. His chest x-ray clinical picture and CT scan have ruled out pulmonary emboli Clinical other question is possible heart failure although his BNP is low no coronary artery history has a normal heart exam and normal size chest x-ray. Patient does not have edema or JVD I would like to add an echocardiogram to rule out potential heart failure as a cause. Premature ventricular contractions. Tachycardia and high blood pressure. Patient has a history of high blood pressure and irregular heart beat this has been exacerbated by his underlying pulmonary conditionn laboratory monitor will be continued and monitored throughout his hospital stay. Essential hypertension. He is on a calcium channel alexey lisinopril. Will continue with his current blood pressure medication. Gastroesophageal reflux. Will continue on his proton pump inhibitor DVT prophylaxis with Lovenox. Code status patient is full code. Disposition and plan. Patient will meet inpatient criteria and will anticipate him being in the hospital a cross 2 midnights.
[2019-03-11 16:13] LABS: Adenovirus Not Detected (Not Detect); Bordetella pertussis Not Detected (Not Detect); Chlamydophila pneumoniae Not Detected (Not Detect); Coronavirus 229E Not Detected (Not Detect); Coronavirus HKU1 Not Detected (Not Detect); Coronavirus NL 63 Not Detected (Not Detect); Coronavirus OC43 Not Detected (Not Detect); Human Metapneumovirus Not Detected (Not Detect); Human Rhinovirus/Enterovirus Not Detected (Not Detect); Influenza A Not Detected (Not Detect); Influenza B Not Detected (Not Detect); Mycoplasma pneumoniae Not Detected (Not Detect); Parainfluenza Virus 1 Not Detected (Not Detect); Parainfluenza Virus 2 Not Detected (Not Detect); Parainfluenza Virus 3 Not Detected (Not Detect); Parainfluenza Virus 4 Not Detected (Not Detect); Respiratory Syncytial Virus Not Detected (Not Detect)
[2019-03-11 16:16] LABS: Bacteria Urine None Seen; RBC Urine None Seen (0-5/HPF); WBC Urine None Seen (0-5/HPF)
[2019-03-11 16:20] LABS: Appearance Urine UA CLEAR; Bilirubin Urine UA NEGATIVE (NEGATIVE); Color Urine UA YELLOW; Glucose Urine UA NEGATIVE (Negative); Ketones Urine UA NEGATIVE (NEGATIVE); Leukocyte Esterase Urine UA NEGATIVE (NEGATIVE); Nitrite Urine UA NEGATIVE (Negative); Occult Blood Urine UA TRACE-LYSED (Negative); Protein Urine UA NEGATIVE (Negative); Specific Gravity Urine UA <=1.005 (1.000-1.035); Urobilinogen Urine UA 0.2 E.U./dL (0.2); pH Urine UA 5.5 (4.5-8.0)
[2019-03-11 16:23] LABS: Culture Indicated Urine Cult Not Indicated; Urine Comments Microscopic Normal
[2019-03-11] MEDS: ASPIRIN 81 MG TAB PO (16:30)
[2019-03-11] MEDS: LISINOPRIL 10 MG TABLET PO (16:30)
[2019-03-11] MEDS: PANTOPRAZOLE 40 MG TABLET PO (16:30)
[2019-03-12 04:50] VITALS: BP 119/44; PULSE 82; RESP 10; TEMP 36.3; O2SAT 82
[2019-03-12 06:47] LABS: Hematocrit 38.8 % (41-53); Hemoglobin 13.1 g/dL (13.5-17.5); Mean Corpuscular HGB Conc 33.8 % (30-36); Mean Corpuscular Hemoglobin 30.3 PG (26-34); Mean Corpuscular Volume 89.5 fL (80-100); Platelet Count 319 X10^3/uL (150-400); Red Blood Cell Count 4.34 X10^6/uL (4.5-5.9); White Blood Cell Count 16.7 X10^3/uL (4.5-11.0)
[2019-03-12 06:55] LABS: Creatine Kinase 569 U/L (55-170)
[2019-03-12 06:57] LABS: Alanine Aminotransferase 38 IU/L (21-72); Albumin 3.5 g/dL (3.5-5.0); Albumin Globulin Ratio 1.2 (1.0-2.8); Alkaline Phosphatase 93 U/L (38-126); Aspartate Aminotransferase 39 IU/L (17-59); BUN Creatinine Ratio 41.3 (6-22); Bilirubin Total 0.4 mg/dL (0.2-1.3); Blood Urea Nitrogen 33 mg/dL (9-20); Calcium 8.4 mg/dL (8.4-10.2); Carbon Dioxide 26 mmol/L (22-32); Chloride 102 mmol/L (98-107); Estimated Glomerular Filt Rate > 60.0 mL/min (>60); Globulin 2.9 g/dL (1.7-4.1); Glucose 174 mg/dL (80-110); HEMOLYSIS 16 (0-50); Potassium 3.8 mmol/L (3.4-5.1); Sodium 137 mmol/L (137-145); Total Protein 6.4 g/dL (6.3-8.2)
--- NOTE | 2019-03-12 07:00 | DI.RAD.S_ITS ---
PROCEDURE: XR CHEST 2V INDICATIONS: resp failure short of breath TECHNIQUE: 2 views of the chest were acquired. COMPARISON: [facility], CT, CT ANGIO CHEST PE PROTOCOL, 03/11/2019, 12:59. [facility], CR, XR CHEST 2V, 03/11/2019, 16:11. [facility], CR, XR CHEST 1V, 03/11/2019, 11:08. FINDINGS: Surgical changes and devices: None. Lungs and pleura: Lungs are abnormal with a mild interstitial prominence previously present, perhaps reflecting prior smoking history. This is most prominent over the mid and lower lungs, and the lung volumes are relatively large on the frontal and lateral views. There is relative lucency over the upper third of the lungs. No pleural effusions or pneumothorax. Mediastinum: Mediastinal contours are normal. Heart size is normal. Bones and chest wall: No suspicious bony abnormalities. Soft tissues appear unremarkable. IMPRESSION: COPD, chronic interstitial prominence over the mid and lower lungs likely related to prior smoking and there is emphysematous change management facilitator the upper lungs bilaterally. This has been previously documented by CT scanning. Dictated by: Chino Quezada M.D. on 03/12/2019 at 9:50 Approved by: Chino Quezada M.D. on 03/12/2019 at 9:52
[2019-03-12 07:08] LABS: Troponin I < 0.012 ng/mL (0.01-0.034)
[2019-03-12 07:11] LABS: CKMB % Relative Index 1.5 % (1.5-5.0); Creatine Kinase MB 8.57 ng/mL (<2.37)
[2019-03-12 08:00] VITALS: BP 130/77; PULSE 81; RESP 16; TEMP 36.7; O2SAT 94
--- NOTE | 2019-03-12 08:40 | PM.DS.1 ---
History of Present Illness Chief complaint: Irregular Heart Rate/SOB Narrative: Patient complains of shortness of breath and cough. Symptoms started this last weekend. He had his recently traveled to [place] go to [place] and then flew home they been gone about 2 weeks. The patient had his normal weekend. He says Friday night he began to have a mild cough. He then also had some greenish peres sputum production. He felt warm and maybe had some night sweats that night. He figured he would wake up the next day and feel little bit better. He did not he continued to cough intermittently and then began to have shortness of breath. Had mild decreased exercise tolerance he has some mild pain with his cough. And increasing shortness of breath with his cough. He has no palpitations. No headache no dizziness no blurry vision. He has had no lower extremity edema or swelling calf pain or tenderness. his cough progressed and yesterday he was seen in the clinic with increasing cough and shortness of breath. Diagnosed with a viral infection and prescribed his home remedies and symptomatic care. Yesterday evening his cough progressed in his shortness of breath also progressed he then had a rough night last night and then progressed to the emergency room today with worsening symptoms this morning. He denies any clearcut fevers or chills. He denies any blood similar symptoms before. His is not sick. He did fly and spent a lot of time in the car. Discharge Providers Date of admission: 03/11/19 14:16 Discharge Date: 03/12/19 Primary care physician: Messi Alonzo MD Consults: 03/11/19 11:01 Consult to Respiratory Therapy Evaluate & Treat Comment: Physician Instructions: Evaluate and treat 03/11/19 16:01 Consult to Discharge Planning Routine Comment: 03/11/19 16:27 Consult to Dietitian, Adult Routine Comment: Reason For Exam: assessed at high risk Discharge provider: Messi Alonzo MD Summary Discharge Diagnosis: Atypical pneumonia Acute respiratory failure COPD PVCs Hypertension Gastroesophageal reflux Hospital Course: Patient is was admitted to the hospital with acute respiratory failure. With low oxygen saturation increased respiratory distress increased work of breathing and elevated white blood cell count. Patient in the emergency room received oxygen nebulizers steroids antibiotics and Lasix. Because of his ongoing respiratory distress he was admitted hospital for further workup and evaluation. Patient did well during his hospital stay. He was continued on IV steroids and nebulizer treatments. Had a sputum culture. Repeat blood work. He had further workup of his heart due to the signs of pulmonary edema on his chest x-ray possibly as well as CT scan. Although he had a normal BNP. An echocardiogram was done to help rule out and this cleared heart failure as a cause of his respiratory distress. Over in the suing at hours he improved rapidly. By the time of re-evaluation he was no longer requiring oxygen. His respiratory status is stabilized. He was responding to current treatment. At the time of discharge she had pending his echocardiogram as well as an LDH and sputum culture but he was feeling well enough that he was anxious to go home. Patient will be discharged with oral antibiotics steroids in a tapering dose inhaler and we will change his Procardia to metoprolol. Patient will have a follow-up in the office in 6 days Exam Vital Signs (past 8 hours): - 03/12/19 04:50 03/12/19 08:00 Temperature 97.3 F L 98.0 F Pulse Rate 82 81 Respiratory Rate 10 L 16 Blood Pressure 119/44 L 130/77 Pulse Oximetry 82 L 94 Oxygen Delivery Method Room Air Oxygen Flow Rate 2 Narrative Exam Narrative: Gen.: Alert and oriented x3 no apparent distress. HEENT: NCAT PERRLA tympanic membranes are clear nares are patent oral mucosa is moist no tonsillar hypertrophy neck is supple without lymphadenopathy no thyroid enlargement. Cardio: S1-S2 regular rate and rhythm no murmurs appreciated. Respiratory: Lungs are clear to auscultation no wheezes or crackles normal respiratory effort. Abdomen: Soft nontender no rebound or guarding no liver spleen enlargement no appreciable hernias Extremities: Full range of motion no appreciable weakness no cyanosis or edema. Neurologic: Grossly intact. Objective Labs Result Diagrams: 03/12/19 06:35 03/12/19 06:35 Labs: Laboratory Results - last 24 hr 03/11/19 03/11/19 03/11/19 11:16 11:16 11:16 WBC 17.0 H RBC 4.58 Hgb 13.9 Hct 41.1 MCV 89.8 MCH 30.4 MCHC 33.9 RDW 12.8 Plt Count 320 Neut % (Auto) 58.9 Lymph % (Auto) 21.2 L [place] % (Auto) 18.4 H Eos % (Auto) 1.1 L Baso % (Auto) 0.4 Neut # (Auto) 48943 H Lymph # (Auto) 3600 [place] # (Auto) 3100 H Eos # (Auto) 200 Baso # (Auto) 100 PT 15.5 H INR 1.3 APTT 29 Sodium 139 Potassium 3.8 Chloride 103 Carbon Dioxide 24 BUN 21 H Creatinine 0.80 Estimated GFR > 60.0 BUN/Creatinine Ratio 26.3 H Glucose 113 H Calcium 8.6 Magnesium 2.0 Total Bilirubin 1.2 AST 34 ALT 38 Alkaline Phosphatase 108 Total Creatine Kinase 332 H CK-MB (CK-2) 4.10 H CK-MB (CK-2) Rel Index 1.2 L Troponin I < 0.012 B-Natriuretic Peptide 107 H Total Protein 7.0 Albumin 3.9 Globulin 3.1 Albumin/Globulin Ratio 1.3 Procalcitonin Urine Color Urine Appearance Urine pH Ur Specific [place] Urine Protein Urine Glucose (UA) Urine Ketones Urine Occult Blood Urine Nitrate Urine Bilirubin Urine Urobilinogen Ur Leukocyte Esterase Urine RBC Urine WBC Urine Bacteria Ur Culture Indicated? Micro UA Comment Nasal Screen MRSA (PCR) Chlamy pneumoniae PCR Adenovirus (PCR) B.parapertussis DNA PCR Coronavirus OC43 (PCR) Coronavirus HKU1 (PCR) Coronavirus 229E (PCR) Coronavirus NL63 (PCR) Human Metapneumovir PCR Influenza Type A (PCR) Influenza Type B (PCR) M. pneumoniae (PCR) Parainfluenza 1 (PCR) Parainfluenza 2 (PCR) Parainfluenza 3 (PCR) Parainfluenza 4 (PCR) RSV (PCR) Entero/Rhino (PCR) 03/11/19 03/11/19 03/11/19 11:16 14:25 14:28 WBC RBC Hgb Hct MCV MCH MCHC RDW Plt Count Neut % (Auto) Lymph % (Auto) [place] % (Auto) Eos % (Auto) Baso % (Auto) Neut # (Auto) Lymph # (Auto) [place] # (Auto) Eos # (Auto) Baso # (Auto) PT INR APTT Sodium Potassium Chloride Carbon Dioxide BUN Creatinine Estimated GFR BUN/Creatinine Ratio Glucose Calcium Magnesium Total Bilirubin AST ALT Alkaline Phosphatase Total Creatine Kinase CK-MB (CK-2) CK-MB (CK-2) Rel Index Troponin I B-Natriuretic Peptide Total Protein Albumin Globulin Albumin/Globulin Ratio Procalcitonin 0.32 Urine Color Yellow Urine Appearance Clear Urine pH 5.5 Ur Specific [place] <=1.005 Urine Protein Negative Urine Glucose (UA) Negative Urine Ketones Negative Urine Occult Blood Trace-lysed Urine Nitrate Negative Urine Bilirubin Negative Urine Urobilinogen 0.2 Ur Leukocyte Esterase Negative Urine RBC None seen Urine WBC None seen Urine Bacteria None seen Ur Culture Indicated? Cult not indicated Micro UA Comment Microscopic normal Nasal Screen MRSA (PCR) Chlamy pneumoniae PCR Not detected Adenovirus (PCR) Not detected B.parapertussis DNA PCR Not detected Coronavirus OC43 (PCR) Not detected Coronavirus HKU1 (PCR) Not detected Coronavirus 229E (PCR) Not detected Coronavirus NL63 (PCR) Not detected Human Metapneumovir PCR Not detected Influenza Type A (PCR) Not detected Influenza Type B (PCR) Not detected M. pneumoniae (PCR) Not detected Parainfluenza 1 (PCR) Not detected Parainfluenza 2 (PCR) Not detected Parainfluenza 3 (PCR) Not detected Parainfluenza 4 (PCR) Not detected RSV (PCR) Not detected Entero/Rhino (PCR) Not detected 03/11/19 03/12/19 03/12/19 14:45 06:35 06:35 WBC 16.7 H RBC 4.34 L Hgb 13.1 L Hct 38.8 L MCV 89.5 MCH 30.3 MCHC 33.8 RDW 13.0 Plt Count 319 Neut % (Auto) 78.7 H Lymph % (Auto) 13.9 L [place] % (Auto) 7.2 Eos % (Auto) 0.0 L Baso % (Auto) 0.2 Neut # (Auto) 91495 H Lymph # (Auto) 2300 [place] # (Auto) 1200 H Eos # (Auto) 0 Baso # (Auto) 0 PT INR APTT Sodium Potassium Chloride Carbon Dioxide BUN Creatinine Estimated GFR BUN/Creatinine Ratio Glucose Calcium Magnesium Total Bilirubin AST ALT Alkaline Phosphatase Total Creatine Kinase 569 H D CK-MB (CK-2) 8.57 H D CK-MB (CK-2) Rel Index 1.5 Troponin I < 0.012 B-Natriuretic Peptide Total Protein Albumin Globulin Albumin/Globulin Ratio Procalcitonin Urine Color Urine Appearance Urine pH Ur Specific [place] Urine Protein Urine Glucose (UA) Urine Ketones Urine Occult Blood Urine Nitrate Urine Bilirubin Urine Urobilinogen Ur Leukocyte Esterase Urine RBC Urine WBC Urine Bacteria Ur Culture Indicated? Micro UA Comment Nasal Screen MRSA (PCR) Negative for mrsa Chlamy pneumoniae PCR Adenovirus (PCR) B.parapertussis DNA PCR Coronavirus OC43 (PCR) Coronavirus HKU1 (PCR) Coronavirus 229E (PCR) Coronavirus NL63 (PCR) Human Metapneumovir PCR Influenza Type A (PCR) Influenza Type B (PCR) M. pneumoniae (PCR) Parainfluenza 1 (PCR) Parainfluenza 2 (PCR) Parainfluenza 3 (PCR) Parainfluenza 4 (PCR) RSV (PCR) Entero/Rhino (PCR) 03/12/19 06:35 WBC RBC Hgb Hct MCV MCH MCHC RDW Plt Count Neut % (Auto) Lymph % (Auto) [place] % (Auto) Eos % (Auto) Baso % (Auto) Neut # (Auto) Lymph # (Auto) [place] # (Auto) Eos # (Auto) Baso # (Auto) PT INR APTT Sodium 137 Potassium 3.8 Chloride 102 Carbon Dioxide 26 BUN 33 H Creatinine 0.80 Estimated GFR > 60.0 BUN/Creatinine Ratio 41.3 H Glucose 174 H Calcium 8.4 Magnesium Total Bilirubin 0.4 AST 39 ALT 38 Alkaline Phosphatase 93 Total Creatine Kinase CK-MB (CK-2) CK-MB (CK-2) Rel Index Troponin I B-Natriuretic Peptide Total Protein 6.4 Albumin 3.5 Globulin 2.9 Albumin/Globulin Ratio 1.2 Procalcitonin Urine Color Urine Appearance Urine pH Ur Specific [place] Urine Protein Urine Glucose (UA) Urine Ketones Urine Occult Blood Urine Nitrate Urine Bilirubin Urine Urobilinogen Ur Leukocyte Esterase Urine RBC Urine WBC Urine Bacteria Ur Culture Indicated? Micro UA Comment Nasal Screen MRSA (PCR) Chlamy pneumoniae PCR Adenovirus (PCR) B.parapertussis DNA PCR Coronavirus OC43 (PCR) Coronavirus HKU1 (PCR) Coronavirus 229E (PCR) Coronavirus NL63 (PCR) Human Metapneumovir PCR Influenza Type A (PCR) Influenza Type B (PCR) M. pneumoniae (PCR) Parainfluenza 1 (PCR) Parainfluenza 2 (PCR) Parainfluenza 3 (PCR) Parainfluenza 4 (PCR) RSV (PCR) Entero/Rhino (PCR) Discharge Plan Discharge Plan Discharge Problem: COPD (chronic obstructive pulmonary disease) Patient Disposition: Home Discharge comment: f/u che[facility]le in 1 week Discharge Med Rec/Prescriptions Prescriptions: New levofloxacin [Levaquin] 500 mg tablet 500 mg PO DAILY Qty: 7 RF: 0 prednisone 50 mg tablet See Rx Instructions .ROUTE .COMPLEX Qty: 30 RF: 0 metoprolol succinate 25 mg tablet extended release 24 hr 25 mg PO DAILY Qty: 30 RF: 1 Combivent Respimat 20-100 mcg/actuation mist 2 puff INHALATION Q6H Qty: 4 RF: 2 Continued PreserVision AREDS 1 tab PO QPM Qty: 0 RF: 0 aspirin 81 MG tablet,chewable 81 mg PO QPM Qty: 0 RF: 0 guaifenesin [Mucinex] 1,200 mg tablet extended release 12hr 1,200 mg PO Q12H Qty: 20 RF: 0 pantoprazole [Protonix] 40 mg tablet,delayed release (DR/EC) 40 mg PO QPM RF: 0 lisinopril 10 mg tablet 10 mg PO QPM RF: 0 Discontinued nifedipine [Procardia XL] 30 mg tablet extended release 24hr 30 mg PO QPM RF: 0 Follow up/Referrals: Messi Alonzo MD [Primary Care Provider] - Discharge Data Primary Care Provider: Messi Alonzo Attending Provider: Messi Alonzo Admit Date/Time: 03/11/19 14:16
[2019-03-12 08:47] VITALS: PULSE 96; RESP 13; O2SAT 93
[2019-03-12] MEDS: ALBUTEROL/IPRATROPIUM 3 ML AMPUL INH (08:47)
[2019-03-12] MEDS: methylPREDNISolone 125 MG/2 ML VIAL 60 MG IV (09:02)
[2019-03-12] MEDS: FUROSEMIDE 40 MG/4 ML VIAL IV (09:02)
[2019-03-12] MEDS: BENZONATATE 100 MG CAPSULE PO (09:04)
[2019-03-12 09:33] VITALS: O2SAT 95
[2019-03-12 10:31] LABS: Lactate Dehydrogenase 626 U/L (313-618)
--- NOTE | 2019-03-12 10:51 | CM.DANOTE ---
Discharge Planning/Care Management DCP: assessment: case received, EMR reviewed. Discussed in Team Rounds. Pt is a 73 year old male who admitted yesterday afternoon to care of PCP: Dr. Alonzo. Dr. Alonzo saw him this morning, noted his eagerness to d/c to home and has ok'd this with an followup appt with Dr. Alonzo in one week. Payer: Medicare and [email or web address]. Care team members are expressing no concerns re the d/c today...will follow prn until pt leaves. CM Discharge Assessment Start: 03/12/19 10:50 Freq: Status: Active Protocol: Document 03/12/19 10:50 ITV (Rec: 03/12/19 10:51 ITV [id number]) Discharge Planning Assessment Advance Directives? Yes History Provided By Patient Medical Record Household Members spouse Is patient alert and oriented? Yes Review Status In Process Next Review Type Continued Stay Review
--- NOTE | 2019-03-12 12:05 | PC.NURSE ---
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
[2019-03-12 14:04] LABS: Add Manual Diff / Slide Review YES
[2019-03-12 14:06] LABS: Neutrophils Absolute Manual 12859 /uL (3000-5900); Total Cells Counted 100
[2019-03-12 14:07] LABS: Toxic Granulation Present
[2019-03-12 14:08] LABS: Dohle Bodies 1+
== END 2019-03-12 12:07 | disposition home or self-care (01) ==
LOC: ED 14:16 → AC 14:30 → ICU 14:45 → AC 03-12 10:28
PROVIDERS: Admitting Provider Family Medicine; Emergency Provider Emergency Medicine; Family Provider Family Medicine; PCP Family Medicine; Visit Provider Family Medicine
DX: J18.9 Pneumonia, unspecified organism (principal); R06.02 Shortness of breath; R05 Cough; J44.9 Chronic obstructive pulmonary disease, unspecified; Z87.891 Personal history of nicotine dependence; J96.00 Acute respiratory failure, unspecified whether with hypoxia or hypercapnia; I49.3 Ventricular premature depolarization; I10 Essential (primary) hypertension; K21.9 Gastro-esophageal reflux disease without esophagitis
CPT/HCPCS: 36415; 36591; 71045; 71046; 71275; 80053; 81001; 82550; 82553; 83615; 83735; 83880; 84145; 84484; 85025; 85610; 85730; 87070; 87077; 87205; 87633; 87797; 93005; 93010; 93041; 93306; 94640; 94760; 96365; 96375; 96376; 99284; 99285; G0378; J1650; J1940; J1956; J2930; J7613; Q9967

== ENCOUNTER → 2019-04-01 10:52 | Outpatient (CLI) | payer MEDICARE, OTHER, SELFPAY ==
[2019-03-11 16:23] VITALS: BMI 24.2
--- NOTE | 2019-04-15 16:10 | P.HOLT.S_ITS ---
Electrical And [employer]ic Report Referral & Results Date Patient Seen: 04/01/19 Requesting provider: Messi Alonzo Indication: Shortness of breath Duration of monitoring (days): 7 Diary information: There are no patient diary entries present There is 1 patient triggered event associated with ventricular tachycardia, sinus rhythm, ventricular trigeminy and PVCs within 45 seconds of trigger Data: Minimum heart rate was 45 beats per minute at 06:41 on 04/06/2019 Maximum sinus heart rate was 123 beats per minute at 14:49 on 04/04/2019 Maximum overall heart rate was 200 beats per minute at 13:24 on 04/01/2019 during a 10 beat run of ventricular tachycardia Patient had rare PACs Patient had frequent PVCs that were in total about 25% of overall beats between isolated PVCs couplets and triplets. Patient had 13,000 runs of ventricular tachycardia during the 7 day monitoring. The longest lasted 23.5 seconds at a rate of 120 beats per minute. There also 8 runs of supraventricular tachycardia/atrial tachycardia the fastest being 17 beats at a rate of 174 beats per minute which was also the longest run Impression: Patient with significant ventricular dysrhythmias above. Clinical correlation suggested Dr. Alonzo's office immediately informed of these findings
== END ==
PROVIDERS: Family Provider Family Medicine; PCP Family Medicine; Visit Provider Family Medicine
DX: R06.02 Shortness of breath (principal)
CPT/HCPCS: 0296T; 0298T

== ENCOUNTER → 2021-01-25 09:29 | Outpatient (CLI) | payer MEDICARE, OTHER, SELFPAY ==
[2019-03-11 16:23] VITALS: BMI 24.2
[2021-01-25 11:08] LABS: Add Manual Diff / Slide Review NO; Basophils Absolute Auto 200 /uL (0-100); Basophils Percent Auto 1.8 % (0-2); Eosinophils Absolute Auto 400 /uL (0-450); Eosinophils Percent Auto 4.8 % (2-4); Hematocrit 42.7 % (41-53); Hemoglobin 14.7 g/dL (13.5-17.5); Lymphocytes Absolute Auto 2900 /uL (1100-4500); Lymphocytes Percent Auto 31.7 % (25-40); Mean Corpuscular HGB Conc 34.5 % (30-36); Mean Corpuscular Hemoglobin 31.6 PG (26-34); Mean Corpuscular Volume 91.6 fL (80-100); Monocytes Absolute Auto 1000 /uL (0-900); Monocytes Percent Auto 11.1 % (3-14); Neutrophils Absolute Auto 4600 /uL (1500-7000); Neutrophils Percent Auto 50.6 % (50-75); Platelet Count 252 X10^3/uL (150-400); Red Blood Cell Count 4.66 X10^6/uL (4.5-5.9); Red Cell Distribution Width 13.2 % (11.6-14.8)
[2021-01-25 11:52] LABS: Alanine Aminotransferase 21 IU/L (<50); Albumin 3.8 g/dL (3.5-5.0); Albumin Globulin Ratio 1.5 (1.0-2.8); Alkaline Phosphatase 81 U/L (38-126); Aspartate Aminotransferase 33 IU/L (17-59); BUN Creatinine Ratio 22.1 (6-22); Bilirubin Total 1.2 mg/dL (0.2-1.3); Blood Urea Nitrogen 17 mg/dL (9-20); Calcium 9.1 mg/dL (8.4-10.2); Carbon Dioxide 28 mmol/L (22-32); Chloride 103 mmol/L (98-107); Cholesterol 183 mg/dL (140-199); Estimated Glomerular Filt Rate > 60.0 mL/min (>60); Globulin 2.5 g/dL (1.7-4.1); Glucose 102 mg/dL (80-110); HDL Cholesterol 36 mg/dL (40-60); HEMOLYSIS 16 (0-50); LDL Cholesterol Calculated 117 mg/dL (<100); Potassium 4.5 mmol/L (3.4-5.1); Sodium 135 mmol/L (137-145); Total Protein 6.3 g/dL (6.3-8.2); Triglycerides 152 mg/dL (35-150)
[2021-01-25 12:20] LABS: Prostate Specific Antigen Scrn 6.59 ng/mL (0.1-4.0)
== END ==
PROVIDERS: Family Provider Family Medicine; PCP Family Medicine; Referring Provider Family Medicine; Visit Provider Family Medicine
DX: E78.2 Mixed hyperlipidemia (principal); Z12.5 Encounter for screening for malignant neoplasm of prostate; I10 Essential (primary) hypertension; D72.829 Elevated white blood cell count, unspecified; R97.20 Elevated prostate specific antigen [PSA]
CPT/HCPCS: 36415; 80053; 80061; 85025; G0103

== ENCOUNTER → 2021-05-02 08:40 | Outpatient (CLI) | payer MEDICARE, OTHER, SELFPAY ==
[2019-03-11 16:23] VITALS: BMI 24.2
[2021-05-02 09:13] LABS: HEMOLYSIS < 15 (0-50); Potassium 4.4 mmol/L (3.4-5.1)
[2021-05-02 09:14] LABS: Alanine Aminotransferase 21 IU/L (<50); Albumin 3.7 g/dL (3.5-5.0); Albumin Globulin Ratio 1.5 (1.0-2.8); Alkaline Phosphatase 81 U/L (38-126); Aspartate Aminotransferase 30 IU/L (17-59); BUN Creatinine Ratio 22.1 (6-22); Blood Urea Nitrogen 15 mg/dL (9-20); Calcium 9.1 mg/dL (8.4-10.2); Carbon Dioxide 28 mmol/L (22-32); Chloride 104 mmol/L (98-107); Estimated Glomerular Filt Rate > 60.0 mL/min (>60); Globulin 2.5 g/dL (1.7-4.1); Glucose 101 mg/dL (80-110); Sodium 137 mmol/L (137-145); Total Protein 6.2 g/dL (6.3-8.2)
== END ==
PROVIDERS: Family Provider Family Medicine; PCP Family Medicine; Referring Provider Internal Medicine Cardiovascular Disease; Visit Provider Internal Medicine Cardiovascular Disease
DX: I10 Essential (primary) hypertension (principal)
CPT/HCPCS: 36415; 80053

== ENCOUNTER → 2021-08-10 11:00 | Outpatient (CLI) | payer MEDICARE, OTHER, SELFPAY ==
[2019-03-11 16:23] VITALS: BMI 24.2
[2021-08-10 11:43] LABS: COVID19 -Nasal RAPID Negative (Negative)
== END ==
PROVIDERS: Family Provider Family Medicine; PCP Family Medicine; Visit Provider Nurse Practitioner
DX: Z20.822 Contact with and (suspected) exposure to COVID-19 (principal)
CPT/HCPCS: 87635

== ENCOUNTER → 2021-08-10 11:22 | Outpatient (CLI) | payer MEDICARE, OTHER, SELFPAY ==
[2019-03-11 16:23] VITALS: BMI 24.2
--- NOTE | 2021-08-10 11:24 | DI.RAD.S_ITS ---
PROCEDURE: XR CHEST 2V INDICATIONS: cough TECHNIQUE: 2 views of the chest were acquired. COMPARISON: [facility], CR, XR CHEST 2V, 03/12/2019, 6:52. FINDINGS: Surgical changes and devices: None. Lungs and pleura: Stable chronic appearing scarring/atelectasis in bilateral mid to lower lung meza are again seen unchanged from prior study. No focal infiltrate.. No pleural effusions or pneumothorax. Mediastinum: Mediastinal contours are normal. Heart size is normal. Bones and chest wall: No suspicious bony abnormalities. Soft tissues appear unremarkable. IMPRESSION: No acute cardiopulmonary pathology. Chronic opacities in bilateral lower lung meza suggestive of chronic scarring/atelectasis. Dictated by: Alexys Swan M.D. on 08/10/2021 at 11:33 Approved by: Alexys Swan M.D. on 08/10/2021 at 11:36
== END ==
PROVIDERS: Family Provider Family Medicine; PCP Family Medicine; Referring Provider Nurse Practitioner; Visit Provider Nurse Practitioner
DX: R05 Cough (principal); Z20.822 Contact with and (suspected) exposure to COVID-19
CPT/HCPCS: 71046; 87635

== ENCOUNTER → 2022-03-01 08:30 | Outpatient (CLI) | payer MEDICARE, OTHER, SELFPAY ==
[2019-03-11 16:23] VITALS: BMI 24.2
[2022-03-01 09:08] LABS: Add Manual Diff / Slide Review NO; Basophils Absolute Auto 100 /uL (0-100); Basophils Percent Auto 1.3 % (0-2); Eosinophils Absolute Auto 600 /uL (0-450); Eosinophils Percent Auto 6.5 % (2-4); Hematocrit 41.7 % (41-53); Hemoglobin 14.5 g/dL (13.5-17.5); Lymphocytes Absolute Auto 3300 /uL (1100-4500); Lymphocytes Percent Auto 37.8 % (25-40); Mean Corpuscular HGB Conc 34.8 % (30-36); Mean Corpuscular Hemoglobin 31.3 PG (26-34); Mean Corpuscular Volume 89.9 fL (80-100); Monocytes Absolute Auto 1100 /uL (0-900); Monocytes Percent Auto 12.3 % (3-14); Neutrophils Absolute Auto 3700 /uL (1500-7000); Neutrophils Percent Auto 42.1 % (50-75); Platelet Count 258 X10^3/uL (150-400); Red Blood Cell Count 4.64 X10^6/uL (4.5-5.9); Red Cell Distribution Width 13.2 % (11.6-14.8); White Blood Cell Count 8.9 X10^3/uL (4.5-11.0)
[2022-03-01 09:24] LABS: Alanine Aminotransferase 24 IU/L (<50); Albumin 3.8 g/dL (3.5-5.0); Albumin Globulin Ratio 1.7 (1.0-2.8); Alkaline Phosphatase 74 U/L (38-126); Aspartate Aminotransferase 31 IU/L (17-59); Bilirubin Total 1.1 mg/dL (0.2-1.3); Blood Urea Nitrogen 18 mg/dL (9-20); Calcium 8.6 mg/dL (8.4-10.2); Carbon Dioxide 26 mmol/L (22-32); Chloride 107 mmol/L (98-107); Cholesterol 192 mg/dL (140-199); Estimated Glomerular Filt Rate > 60.0 mL/min (>60); Globulin 2.2 g/dL (1.7-4.1); Glucose 103 mg/dL (80-110); HDL Cholesterol 45 mg/dL (40-60); HEMOLYSIS < 15 (0-50); LDL Cholesterol Calculated 127 mg/dL (<100); Potassium 4.3 mmol/L (3.4-5.1); Sodium 139 mmol/L (137-145); Triglycerides 102 mg/dL (35-150)
[2022-03-01 09:48] LABS: Prostate Specific Antigen Scrn 7.66 ng/mL (0.1-4.0)
[2022-03-01 09:52] LABS: TSH w/ Reflex to FT4 2.21 uIU/mL (0.47-4.68)
== END ==
PROVIDERS: Family Provider Family Medicine; PCP Family Medicine; Referring Provider Family Medicine; Visit Provider Family Medicine
DX: I10 Essential (primary) hypertension (principal); Z12.5 Encounter for screening for malignant neoplasm of prostate; E78.2 Mixed hyperlipidemia
CPT/HCPCS: 36415; 80053; 80061; 84443; 85025; G0103

== ENCOUNTER → 2023-01-14 09:56 | Outpatient (CLI) | payer MEDICARE, OTHER, SELFPAY ==
[2019-03-11 16:23] VITALS: BMI 24.2
--- NOTE | 2023-01-14 10:21 | DI.RAD.S_ITS ---
PROCEDURE: XR CHEST 2V INDICATIONS: Shortness of breath TECHNIQUE: 2 views of the chest were acquired. COMPARISON: [facility], CR, XR CHEST 2V, 08/10/2021, 11:18. FINDINGS: Surgical changes and devices: None. Lungs and pleura: Ill-defined airspace opacity in right lower lung field is seen concerning for small right lower lobe infiltrate. No pleural effusions or pneumothorax. Mediastinum: Mediastinal contours are normal. Heart size is normal. Bones and chest wall: No suspicious bony abnormalities. Soft tissues appear unremarkable. IMPRESSION: Finding is suggestive of small right lower lobe infiltrate. No pleural effusion or pneumothorax. Dictated by: Alexys Swan M.D. on 01/14/2023 at 10:58 Approved by: Alexys Swan M.D. on 01/14/2023 at 10:58
[2023-01-14 11:53] LABS: Influenza A - CEPHEID Flu A NEGATIVE (NEGATIVE); Influenza B - CEPHEID Flu B NEGATIVE (NEGATIVE); Respiratory Syncytial Virus Negative (Negative)
[2023-01-14 11:54] LABS: COVID-19 CEPHEID 4-PLEX PCR Negative (Negative)
== END ==
PROVIDERS: Family Provider Family Medicine; PCP Family Medicine; Referring Provider Registered Nurse; Visit Provider Registered Nurse
DX: R05.1 Acute cough (principal); R06.02 Shortness of breath
CPT/HCPCS: 0241U; 71046

== ENCOUNTER → 2023-07-03 08:30 | Outpatient (CLI) | payer MEDICARE, OTHER, SELFPAY ==
[2019-03-11 16:23] VITALS: BMI 24.2
[2023-07-03 10:14] LABS: Add Manual Diff / Slide Review NO; Basophils Absolute Auto 200 /uL (0-100); Basophils Percent Auto 2.4 % (0-2); Eosinophils Absolute Auto 600 /uL (0-450); Eosinophils Percent Auto 7.7 % (2-4); Hematocrit 42.3 % (41-53); Hemoglobin 14.5 g/dL (13.5-17.5); Lymphocytes Absolute Auto 2500 /uL (1100-4500); Lymphocytes Percent Auto 35.4 % (25-40); Mean Corpuscular HGB Conc 34.3 % (30-36); Mean Corpuscular Hemoglobin 31.1 PG (26-34); Mean Corpuscular Volume 90.6 fL (80-100); Monocytes Absolute Auto 800 /uL (0-900); Monocytes Percent Auto 10.5 % (3-14); Neutrophils Absolute Auto 3100 /uL (1500-7000); Platelet Count 272 X10^3/uL (150-400); Red Blood Cell Count 4.67 X10^6/uL (4.5-5.9); Red Cell Distribution Width 13.7 % (11.6-14.8); White Blood Cell Count 7.2 X10^3/uL (4.5-11.0)
[2023-07-03 11:07] LABS: Alanine Aminotransferase 30 IU/L (<50); Albumin 3.8 g/dL (3.5-5.0); Albumin Globulin Ratio 1.7 (1.0-2.8); Alkaline Phosphatase 82 U/L (38-126); Aspartate Aminotransferase 36 IU/L (17-59); BUN Creatinine Ratio 17.9 (6-22); Bilirubin Total 0.8 mg/dL (0.2-1.3); Blood Urea Nitrogen 12 mg/dL (9-20); Calcium 8.4 mg/dL (8.4-10.2); Carbon Dioxide 30 mmol/L (22-32); Chloride 101 mmol/L (98-107); Cholesterol 170 mg/dL (140-199); Estimated Glomerular Filt Rate > 60 mL/min (>60); Globulin 2.2 g/dL (1.7-4.1); Glucose 82 mg/dL (80-110); HDL Cholesterol 48 mg/dL (40-60); HEMOLYSIS < 15 (0-50); LDL Cholesterol Calculated 102 mg/dL (<100); Sodium 138 mmol/L (137-145); Triglycerides 100 mg/dL (35-150)
[2023-07-03 11:32] LABS: TSH w/ Reflex to FT4 2.07 uIU/mL (0.47-4.68)
== END ==
PROVIDERS: Family Provider Family Medicine; PCP Family Medicine; Referring Provider Family Medicine; Visit Provider Family Medicine
DX: E78.2 Mixed hyperlipidemia (principal); I10 Essential (primary) hypertension
CPT/HCPCS: 36415; 80053; 80061; 84443; 85025

== ENCOUNTER → 2023-12-22 08:47 | Outpatient (CLI) | payer MEDICARE, OTHER, SELFPAY ==
[2019-03-11 16:23] VITALS: BMI 24.2
[2023-12-22 11:14] LABS: Prostate Specific Antigen Scrn 9.24 ng/mL (0.1-4.0)
== END ==
PROVIDERS: Family Provider Family Medicine; PCP Family Medicine; Referring Provider Family Medicine; Visit Provider Family Medicine
DX: Z12.5 Encounter for screening for malignant neoplasm of prostate (principal)
CPT/HCPCS: 36415; G0103

== ENCOUNTER → 2024-01-15 11:04 | Outpatient (CLI) | payer MEDICARE, OTHER, SELFPAY ==
[2019-03-11 16:23] VITALS: BMI 24.2
[2024-01-15 14:04] LABS: COVID-19 CEPHEID 4-PLEX PCR Negative (Negative); Influenza A - CEPHEID Flu A POSITIVE (NEGATIVE); Influenza B - CEPHEID Flu B NEGATIVE (NEGATIVE); Respiratory Syncytial Virus Negative (Negative)
== END ==
PROVIDERS: Family Provider Family Medicine; PCP Family Medicine; Visit Provider Physician Assistant
DX: R05.1 Acute cough (principal)
CPT/HCPCS: 0241U

== ENCOUNTER 2024-02-17 06:40 | Day surgery (SDC) | payer MEDICARE, OTHER, SELFPAY ==
[2019-03-11 16:23] VITALS: BMI 24.2
[2024-02-16 08:24] VITALS: BMI 23.6
[2024-02-17 07:14] VITALS: BMI 22.4
[2024-02-17 07:19] VITALS: BP 168/70; PULSE 67; RESP 17; TEMP 36.1; O2SAT 98
[2024-02-17] MEDS: LACTATED RINGERS 1,000 ML 42 ML IV (07:29)
--- NOTE | 2024-02-17 07:42 | PM.PREOP ---
Pre-operative Note COVID-19 COVID-19 status: Not tested Interval Note History & Physical reviewed/Exam performed by Physician: Yes Changes to H&P: No ASA Class (for procedural sedation): II
[2024-02-17] MEDS: CEFAZOLIN 2 GM/100 ML PREMIX 100 ML IV (08:15)
[2024-02-17] MEDS: BUPIVACAINE 0.5% (PF) 30 ML, EPINEPHrine 0.15 MG INJ (08:23)
--- NOTE | 2024-02-17 08:25 | SUR.OPER ---
Supine on padded OR bed/pink pad, head on pillow, arms padded and tucked at sides, legs uncrossed, safety belt at thigh, tape over blanket over lower legs .
--- NOTE | 2024-02-17 10:09 | PM.OP.1 ---
Operative Date/Time/Diagnoses Date of procedure: 02/17/24 Time of procedure: 10:10 Pre-op diagnosis: Right inguinal hernia Post-op diagnosis: other (Bilateral indirect inguinal hernias) Procedure & Clinicians Procedure: Laparoscopic bilateral inguinal hernia repair with mesh Same procedure as scheduled: Yes Surgeon: Lupillo Connolly Polysomnographic Technologist: Ferny Gilbert Anesthesia Type: General Operative Notes Procedure in detail: The patient was given preoperative antibiotics. The patient was brought to the operating room, placed on the table in the supine position with the arms tucked and general anesthesia was induced. The abdomen was prepped and draped in the usual fashion. A time-out was performed. A 1 cm supraumbilical incision was created and dissection was carried down to the fascia. The fascia was scored transversely with cautery. A Peon clamp was used to hollis the peritoneum. The Guy port was placed and the abdomen was insufflated to 15 mmHg. The camera was inserted, there was no evidence of any injury from the entry. 5 mm ports were placed under direct vision in the mid left and mid right abdomen. The patient was positioned in steep Trendelenburg. There was a large right indirect inguinal hernia and a moderate sized left indirect inguinal hernia. We started on the right side. We created a right peritoneal flap. The peritoneum was dissected off right cord structures and the sac was dissected out of the internal ring. A large right Bard mesh was brought in and placed over the defect with the medial edge against Patrick's ligament. We then closed the peritoneal flap with a running 3-0 barbed suture. Next we turned our attention to the left side. The peritoneum was dissected off the left cord structures and sac was dissected out of the internal ring. A large left Bard mesh was brought in and placed over the defect with the medial edge against Patrick's ligament. We then closed the peritoneal flap with a running 3-0 barbed suture. We took one last look around the abdomen and saw no other abnormalities. The suture was removed and accounted for. The 5 mm ports were removed under direct vision. The abdomen was desufflated. The Guy port was removed. Additional local was injected into the fascia and the fascial incision was closed with 2 interrupted 0 Vicryl sutures. The skin incisions were closed with 4 Monocryl, Steri-Strips and Band-Aids. Ferny HARRIS provided assistance with exposure, retraction and closure of incisions. Post-operative Condition: stable Disposition: PACU
[2024-02-17 10:12] VITALS: BP 145/68; PULSE 68; RESP 18; TEMP 36.3; O2SAT 99
[2024-02-17 10:18] VITALS: BP 144/70; PULSE 63; RESP 13; TEMP 36.3; O2SAT 98
[2024-02-17 10:26] VITALS: BP 145/76; PULSE 56; RESP 12; TEMP 36.3; O2SAT 98
[2024-02-17 10:34] VITALS: BP 125/51; PULSE 54; RESP 12; TEMP 36.4; O2SAT 97
[2024-02-17 11:10] VITALS: BP 154/65; PULSE 53; RESP 12; TEMP 36.2; O2SAT 98
== END 2024-02-17 11:15 | disposition home or self-care (01) ==
PROVIDERS: Family Provider Family Medicine; PCP Family Medicine; Referring Provider Surgery; Visit Provider Surgery
PROC: 0YQ64ZZ Repair Left Inguinal Region, Percutaneous Endoscopic Approach (ICD-10-PCS; CPT 49650; principal; 2024-02-17 08:00)
DX: K40.20 Bilateral inguinal hernia, without obstruction or gangrene, not specified as recurrent (principal)
CPT/HCPCS: 49650; J0171; J0690; J1100; J2704; J3010

== ENCOUNTER → 2024-10-14 10:18 | Outpatient (CLI) | payer MEDICARE, OTHER, SELFPAY ==
[2019-03-11 16:23] VITALS: BMI 24.2
[2024-10-15 07:11] LABS: PSA Free % 9.5 % (.); PSA, Total 12.9 ng/mL (0.0-4.0)
== END ==
LOC: LAB 10:19
PROVIDERS: PCP Family Medicine; Referring Provider Urology; Visit Provider Urology
DX: R97.20 Elevated prostate specific antigen [PSA] (principal)
CPT/HCPCS: 36415; 84153; 84154

== ENCOUNTER → 2024-11-08 17:17 | Outpatient (CLI) | payer MEDICARE, OTHER, SELFPAY ==
[2019-03-11 16:23] VITALS: BMI 24.2
--- NOTE | 2024-11-08 17:19 | DI.MRI.S_ITS ---
PROCEDURE: MR PELVIC PROSTATE PROTOCOL INDICATIONS: 79 y/o M w/ elevated PSA, please eval. TECHNIQUE: Coronal HASTE, axial T1 FSE with fat saturation, 3-plane nonbreath-hold T2 FSE. After the administration of contrast, dynamic axial, delayed axial and coronal VIBE or 2-D FLASH with fat saturation through the pelvis. Diffusion weighted imaging and ADC was performed. COMPARISON: None. FINDINGS: Image quality: Diffusion weighted and dynamic contrast enhanced images are diagnostic. Prostate: 3.9 x 5.1 x 4.4 cm. Estimated volume is 45.5 cc. The PSA density is elevated at 0.284 Transitional zone heterogenous nodules are present, either well encapsulated or mostly encapsulated, compatible with PI-RADS 1 or 2 likely BPH nodules. This is the predominant abnormality. The seminal vesicles appear clear. No definite extracapsular disease. In the right central gland, there is a 1.2 x 1.4 x 1.2 cm lesion 03/05, 04/08. T2 score 3. DWI score 3. DCE positive. PI-RADS 3. Genitourinary system: Unremarkable bladder Bowel and peritoneum: No small bowel obstruction. No pathologic ascites Nodes and vessels: There are mildly enlarged external iliac lymph nodes, for example on the right measuring up to 1.2 cm in short axis. Soft tissues: Postsurgical changes of the pelvic wall Bones: No suspicious osseous enhancement. IMPRESSION: The PSA density is elevated, however there is no highly suspicious lesion (PI-RADS 4, 5) for prostate adenocarcinoma identified by MRI. PI-RADS 3 lesion is seen in the right central gland. Seminal vesicles are clear. Mildly enlarged pelvic lymph nodes are present, for example the external iliac chain, these are indeterminate. These are not necessarily related to the prostate Dictated by: Jaswant Taylor M.D. on 11/09/2024 at 9:52 Approved by: Jaswant Taylor M.D. on 11/09/2024 at 10:07
== END ==
PROVIDERS: PCP Family Medicine; Referring Provider Urology; Visit Provider Urology
DX: N42.9 Disorder of prostate, unspecified (principal); R97.20 Elevated prostate specific antigen [PSA]; R59.0 Localized enlarged lymph nodes
CPT/HCPCS: 72197; A9579

== ENCOUNTER → 2025-01-12 15:29 | Outpatient (CLI) | payer MEDICARE, OTHER, SELFPAY ==
[2019-03-11 16:23] VITALS: BMI 24.2
--- NOTE | 2025-01-12 15:30 | DI.RAD.S_ITS ---
PROCEDURE: XR CHEST 2V INDICATIONS: rhonchi left lower; 10D cough productive hx COPD TECHNIQUE: 2 views of the chest were acquired. COMPARISON: [facility], CR, XR CHEST 2V, 01/14/2023, 10:21. [facility], CR, XR CHEST 2V, 08/10/2021, 11:18. FINDINGS: Surgical changes and devices: None. Lungs and pleura: Lungs are clear. No pleural effusions or pneumothorax. Mediastinum: Mediastinal contours are normal. Heart size is normal. Bones and chest wall: No suspicious bony abnormalities. Soft tissues appear unremarkable. IMPRESSION: No acute cardiopulmonary abnormality is seen. Dictated by: Rasta Brown M.D. on 01/12/2025 at 16:32 Approved by: Rasta Brown M.D. on 01/12/2025 at 16:33
== END ==
PROVIDERS: PCP Family Medicine; Referring Provider Student in an Organized Health Care Education/Training Program; Visit Provider Student in an Organized Health Care Education/Training Program
DX: R05.8 Other specified cough (principal)
CPT/HCPCS: 71046

== ENCOUNTER → 2025-05-02 12:20 | Outpatient (CLI) | payer MEDICARE, OTHER, SELFPAY ==
[2019-03-11 16:23] VITALS: BMI 24.2
--- NOTE | 2025-05-02 12:22 | DI.RAD.S_ITS ---
PROCEDURE: XR RIBS RT MIN 3V W CXR 1V INDICATIONS: Fell, right rib pain. Short of breath TECHNIQUE: 2 views of the ribs were acquired, along with a single view chest. COMPARISON: None. FINDINGS: Surgical changes and devices: None. Bones and chest wall: No fractures or dislocations. No suspicious bony lesions. Overlying soft tissues appear unremarkable. Lungs and pleura: No pleural effusions or pneumothorax. Lungs appear clear. Mediastinum: Mediastinal contours appear normal. Heart size is normal. IMPRESSION: No displaced rib fracture or pneumothorax. Dictated by: Alexys Swan M.D. on 05/02/2025 at 12:55 Approved by: Alexys Swan M.D. on 05/02/2025 at 12:57
== END ==
PROVIDERS: PCP Family Medicine; Referring Provider Family Medicine; Visit Provider Physician Assistant
DX: R07.81 Pleurodynia (principal)
CPT/HCPCS: 71101

== ENCOUNTER → 2025-05-30 08:37 | Outpatient (CLI) | payer MEDICARE, OTHER, SELFPAY ==
[2019-03-11 16:23] VITALS: BMI 24.2
[2025-05-30 09:29] LABS: Alanine Aminotransferase 21 IU/L (<50); Albumin 4.0 g/dL (3.5-5.0); Albumin Globulin Ratio 1.8 (1.0-2.8); Alkaline Phosphatase 114 U/L (38-126); Blood Urea Nitrogen 16 mg/dL (9-20); Calcium 8.9 mg/dL (8.4-10.2); Carbon Dioxide 27 mmol/L (22-32); Chloride 106 mmol/L (98-107); Estimated Glomerular Filt Rate > 60 mL/min (>60); Globulin 2.2 g/dL (1.7-4.1); Glucose 92 mg/dL (70-99); HEMOLYSIS < 15 (0-50); Potassium 4.1 mmol/L (3.4-5.1); Sodium 139 mmol/L (137-145); Total Protein 6.2 g/dL (6.3-8.2)
== END ==
PROVIDERS: PCP Family Medicine; Referring Provider Family Medicine; Visit Provider Internal Medicine Cardiovascular Disease
DX: I47.29 Other ventricular tachycardia (principal); R06.09 Other forms of dyspnea
CPT/HCPCS: 36415; 80053

== ENCOUNTER → 2025-06-28 09:08 | Outpatient (CLI) | payer MEDICARE, OTHER, SELFPAY ==
[2019-03-11 16:23] VITALS: BMI 24.2
--- NOTE | 2025-06-28 09:28 | DI.CT.S_ITS ---
PROCEDURE: CT CHEST HIGH RESOLUTION INDICATIONS: short of breath TECHNIQUE: Noncontrast 1.0 and 5.0 mm thick contiguous axial sections from the pulmonary apex to the posterior costophrenic angles, with 7 mm thick coronal and sagittal MIP reformats. 1 mm thick dynamic expiratory images acquired through the upper, mid, and lower lungs. 1.0 mm thick axial sections acquired from the kevin to the posterior costophrenic angles in the prone end-inspiration position. For radiation dose reduction, the following was used: automated exposure control, adjustment of mA and/or kV according to patient size. COMPARISON: [facility], CT, CT ANGIO CHEST PE PROTOCOL, 03/11/2019, 12:59. FINDINGS: Image quality: Diagnostic. Lower Neck: No enlarged lymph nodes. Thyroid: No thyroid nodules which require sonographic follow up, per consensus guidelines. Axillae: No enlarged lymph nodes. Chest Wall: Unremarkable. Bones: Unremarkable. Lungs and Pleura: No pneumothorax or pleural effusions. Confluent centrilobular emphysema in the lung apices, with biapical scarring. New 7 x 5 millimeter solid nodule in the right lower lobe (series 3, image 192). Heart: Heart size is mildly enlarged, with three-vessel coronary artery calcifications. No pericardial effusion. Thoracic Vessels: The aorta and pulmonary arteries demonstrate normal size. Mediastinum and Naa: No enlarged lymph nodes. Esophagus: No wall thickening. No hiatal hernia. Upper Abdomen: Visualized upper abdomen solid organs and bowel loops appear normal. IMPRESSION: Confluent centrilobular emphysema with biapical scarring. No evidence of interstitial lung disease or combined pulmonary fibrosis and emphysema. New 6 millimeter solid nodule in the right lower lobe. Recommend six-month follow-up per Fleischner society guidelines. Dictated by: Ezra Naylor M.D. on 06/28/2025 at 13:44 Approved by: Ezra Naylor M.D. on 06/28/2025 at 13:47
== END ==
PROVIDERS: PCP Family Medicine; Referring Provider Family Medicine; Visit Provider Family Medicine
DX: J44.1 Chronic obstructive pulmonary disease with (acute) exacerbation (principal); J43.2 Centrilobular emphysema; R91.1 Solitary pulmonary nodule; I51.7 Cardiomegaly; I25.10 Atherosclerotic heart disease of native coronary artery without angina pectoris; R06.02 Shortness of breath
CPT/HCPCS: 71250

== ENCOUNTER → 2025-08-24 09:38 | Outpatient (CLI) | payer MEDICARE, OTHER, SELFPAY ==
[2019-03-11 16:23] VITALS: BMI 24.2
== END ==
PROVIDERS: PCP Family Medicine; Referring Provider Family Medicine; Visit Provider Family Medicine
DX: R06.02 Shortness of breath (principal); Z87.891 Personal history of nicotine dependence; J98.8 Other specified respiratory disorders; R94.2 Abnormal results of pulmonary function studies
CPT/HCPCS: 94060; 94726; 94729